=== PATIENT | male | born 1980 | race Hispanic/Latino ===

== ENCOUNTER 2018-04-13 04:00 | Emergency (ER) | payer OTHER ==
[2018-04-13] MEDS ORDERED: TETRACAINE HCL 0.5% 2ML OPTH ONE (04:10)
[2018-04-13] MEDS ORDERED: FLUORESCEIN SODIUM 0.6 MG/WRAP ONE (04:10)
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
[2018-04-13] MEDS ORDERED: TOBRAMYCIN SULF 0.3% OPTH OINT ONE (04:37)
[2018-04-13 04:51] VITALS: BP 141/90; TEMP 98.6; O2SAT 99
== END 2018-04-13 04:47 | disposition home or self-care (01) ==
LOC: ER 04:00
DX: H16.133 Photokeratitis, bilateral (principal); I10 Essential (primary) hypertension
CPT/HCPCS: 99283

== ENCOUNTER 2018-07-05 01:00 | Emergency (ER) | payer OTHER ==
[2018-07-05 01:46] LABS: Absolute Lymphocytes (CBC) 3.3 K/uL (0.7-4.9); Absolute Neutrophil 4.8 K/uL (1.8-8.0); Basophils % 0.5 % (0-1.3); Eosinophils % 3.3 % (0-4.4); Hematocrit 46.2 % (39.6-49.0); Lymphocytes % 35.1 % (15.3-44.8); MCH 30.2 pg (27.0-35.0); MCV 85.1 fL (80-100); MPV 7.9 fL (7.6-11.3); Monocytes % 10.9 % (3.3-12.3); RBC Red Blood Cell Count 5.44 M/uL (4.33-5.43)
[2018-07-05 02:07] LABS: BUN Blood Urea Nitrogen 17 mg/dL (7-18); Bicarbonate 29 mmol/L (21-32); Glucose Level 133 mg/dL (74-106); Potassium 3.5 mmol/L (3.5-5.1); Sodium Level 138 mmol/L (136-145); Troponin (Emerg Dept Use Only) < 0.02 ng/mL (0.0-0.045)
--- NOTE | 2018-07-05 02:17 | ER ---
Nurse's Notes [facility] Name: Denzel Denise Age: 37 yrs Sex: Male : 1980 Arrival Date: 07/05/2018 Time: 01:01 Bed 7 Private MD: Diagnosis: Chest pain, unspecified Presentation: 07/05 01:15 Presenting complaint: Patient states: he has had a sharp pain in his chest since this aa1 morning. States, "I'm not sure if it's indigestion or an air bubble or what but it just stays right here in the center of my chest." Denies pain on palpation. Denies N/V. Reports it feels as if he can't take a full breath in. Transition of care: patient was not received from another setting of care. Onset of symptoms was July 04, 2018. 01:15 Method Of Arrival: Ambulatory aa1 01:15 Risk Assessment: Do you want to hurt yourself or someone else? Patient reports no aa1 desire to harm self or others. Initial Sepsis Screen: Does the patient meet any 2 criteria? No. Patient's initial sepsis screen is negative. Does the patient have a suspected source of infection? No. Patient's initial sepsis screen is negative. Care prior to arrival: None. 01:15 Acuity: TAYLOR 3 aa1 Historical: - Allergies: 01:38 No Known Allergies; aa1 - Home Meds: 01:38 None [Active]; aa1 - PMHx: 01:38 Hypertension; aa1 - PSHx: 01:38 None; aa1 - Immunization history:: Last tetanus immunization: < 5 years ago. - Social history:: Smoking status: Patient/guardian denies using tobacco. - Ebola Screening: : No symptoms or risks identified at this time. Screenin:17 Abuse screen: Denies threats or abuse. Denies injuries from another. Nutritional aa1 screening: No deficits noted. Tuberculosis screening: No symptoms or risk factors identified. Fall Risk None identified. Assessment: 01:17 General: Appears in no apparent distress. comfortable, Behavior is calm, cooperative, aa1 appropriate for age. Pain: Complains of pain in mid-sternal area Pain does not radiate. Pain currently is 5 out of 10 on a pain scale. Quality of pain is described as sharp, Pain began this morning Is continuous. Neuro: Level of Consciousness is awake, alert, obeys commands, Oriented to person, place, time, situation, Moves all extremities. Full function Gait is steady, Speech is normal. Cardiovascular: Reports chest pain, Denies diaphoresis, lightheadedness, nausea, palpitations, vomiting, Heart tones S1 S2 present Capillary refill < 3 seconds Clubbing of nail beds is absent JVD is absent Patient's skin is warm and dry. Rhythm is regular Chest pain is described as vague, quality is sharp. Respiratory: Airway is patent Respiratory effort is even, unlabored, Respiratory pattern is regular, symmetrical. GI: No signs and/or symptoms were reported involving the gastrointestinal system. : No signs and/or symptoms were reported regarding the genitourinary system. EENT: No signs and/or symptoms were reported regarding the EENT system. Derm: Skin is intact, is healthy with good turgor, Skin is pink, warm \\T\\ dry. Musculoskeletal: Circulation, motion, and sensation intact. Capillary refill < 3 seconds. 02:35 Reassessment: Patient appears in no apparent distress at this time. Patient is alert, aa1 oriented x 3, equal unlabored respirations, skin warm/dry/pink. Discussed d/c \\T\\ f/u instructions with pt \\T\\ family; denies questions or concerns at this time. Vital Signs: 01:15 BP 141 / 75; Pulse 71; Resp 18; Temp 97.9; Pulse Ox 97% on R/A; Weight 104.33 kg; aa1 Height 5 ft. 6 in. (167.64 cm); Pain 5/10; 02:35 BP 134 / 78; Pulse 79; Resp 16; Pulse Ox 98% on R/A; aa1 01:15 Body Mass Index 37.12 (104.33 kg, 167.64 cm) aa1 ED Course: 01:01 Patient arrived in ED. ds1 01:14 Barry Casillas NP is PHCP. pm1 01:14 Rick Barr MD is Attending Physician. pm1 01:15 Arm band placed on right wrist. Patient placed in an exam room, on a stretcher. aa1 01:17 Patient has correct armband on for positive identification. Placed in gown. Bed in low aa1 position. Call light in reach. press operator carbon blocks on. Pulse ox on. NIBP on. 01:17 EKG done, by ED staff, reviewed by Rick Barr MD. Patient maintains SpO2 saturation aa1 greater than 95% on room air. 01:20 Inserted saline lock: 20 gauge in right antecubital area, using aseptic technique. ea Blood collected. 01:24 Gi Bee, RN is Primary Nurse. aa1 01:37 Triage completed. aa1 02:27 X-ray completed. Portable x-ray completed in exam room. Patient tolerated procedure mh1 well. 02:28 XRAY Chest (1 view) In Process Unspecified. EDMS 02:35 No provider procedures requiring assistance completed. IV discontinued, intact, aa1 bleeding controlled, No redness/swelling at site. Pressure dressing applied. Administered Medications: No medications were administered Outcome: 02:17 Discharge ordered by . pm1 02:35 Discharged to home ambulatory, with family. aa1 02:35 Condition: good 02:35 Discharge instructions given to patient, family, Instructed on discharge instructions, follow up and referral plans. Demonstrated understanding of instructions, follow-up care. 02:38 Patient left the ED. aa1 Signatures: Dispatcher [employer] EDMS Gi Bee, RN RN aa1 Shari Chang mh1 Julia Rowan ds1 aBrry Casillas, [employer] SYSTEMS DEVELOPER pm1 Bianca Hood RN RN ea
--- NOTE | 2018-07-05 02:17 | EDPHYS ---
Physician Documentation [facility] Name: Denzel Denise Age: 37 yrs Sex: Male : 1980 Arrival Date: 07/05/2018 Time: 01:01 Bed 7 Private MD: ED Physician Rick Barr HPI: 07/05 02:09 This 37 yrs old Male presents to ER via Ambulatory with complaints of Chest pm1 Pain. 02:09 The patient or guardian reports chest pain that is located primarily in the mid-sternal pm1 area. The pain does not radiate. Associated signs and symptoms: Pertinent positives: shortness of breath, Pertinent negatives: abdominal pain, cough, dizziness, nausea, palpitations, vomiting. The chest pain is described as aching. Duration: The patient or guardian reports a single episode, that is still ongoing. Modifying factors: The symptoms are alleviated by nothing. the symptoms are aggravated by deep breath. Severity of pain: in the emergency department the pain is unchanged. The patient has not experienced similar symptoms in the past. The patient has not recently seen a physician. Onset of chest pain yesterday morning. Historical: - Allergies: 01:38 No Known Allergies; aa1 - Home Meds: 01:38 None [Active]; aa1 - PMHx: 01:38 Hypertension; aa1 - PSHx: 01:38 None; aa1 - Immunization history:: Last tetanus immunization: < 5 years ago. - Social history:: Smoking status: Patient/guardian denies using tobacco. - Ebola Screening: : No symptoms or risks identified at this time. ROS: 02:09 Constitutional: Negative for fever, chills, and weight loss, Eyes: Negative for injury, pm1 pain, redness, and discharge, ENT: Negative for injury, pain, and discharge, Neck: Negative for injury, pain, and swelling. 02:09 Respiratory: Negative for shortness of breath, cough, wheezing, and pleuritic chest pain, Abdomen/GI: Negative for abdominal pain, nausea, vomiting, diarrhea, and constipation, Back: Negative for injury and pain, : Negative for injury, bleeding, discharge, and swelling, MS/Extremity: Negative for injury and deformity, Skin: Negative for injury, rash, and discoloration, Neuro: Negative for headache, weakness, numbness, tingling, and seizure. 02:09 Cardiovascular: Positive for chest pain, Negative for edema, orthopnea, palpitations, paroxysmal nocturnal dyspnea. Exam: 02:09 Constitutional: This is a well developed, well nourished patient who is awake, alert, pm1 and in no acute distress. Head/Face: Normocephalic, atraumatic. Eyes: Pupils equal round and reactive to light, extra-ocular motions intact. Lids and lashes normal. Conjunctiva and sclera are non-icteric and not injected. Cornea within normal limits. Periorbital areas with no swelling, redness, or edema. ENT: Nares patent. No nasal discharge, no septal abnormalities noted. Tympanic membranes are normal and external auditory canals are clear. Oropharynx with no redness, swelling, or masses, exudates, or evidence of obstruction, uvula midline. Mucous membranes moist. Neck: Trachea midline, no thyromegaly or masses palpated, and no cervical lymphadenopathy. Supple, full range of motion without nuchal rigidity, or vertebral point tenderness. No Meningismus. Chest/axilla: Normal chest wall appearance and motion. Nontender with no deformity. No lesions are appreciated. Cardiovascular: Regular rate and rhythm with a normal S1 and S2. No gallops, murmurs, or rubs. Normal PMI, no JVD. No pulse deficits. Respiratory: Lungs have equal breath sounds bilaterally, clear to auscultation and percussion. No rales, rhonchi or wheezes noted. No increased work of breathing, no retractions or nasal flaring. Abdomen/GI: Soft, non-tender, with normal bowel sounds. No distension or tympany. No guarding or rebound. No evidence of tenderness throughout. Back: No spinal tenderness. No costovertebral tenderness. Full range of motion. Skin: Warm, dry with normal turgor. Normal color with no rashes, no lesions, and no evidence of cellulitis. MS/ Extremity: Pulses equal, no cyanosis. Neurovascular intact. Full, normal range of motion. 02:09 NSR 02:09 Neuro: Orientation: is normal, Motor: is normal, moves all fours. Vital Signs: 01:15 BP 141 / 75; Pulse 71; Resp 18; Temp 97.9; Pulse Ox 97% on R/A; Weight 104.33 kg; aa1 Height 5 ft. 6 in. (167.64 cm); Pain 5/10; 02:35 BP 134 / 78; Pulse 79; Resp 16; Pulse Ox 98% on R/A; aa1 01:15 Body Mass Index 37.12 (104.33 kg, 167.64 cm) aa1 MDM: 01:20 Patient medically screened. pm1 02:12 Data reviewed: vital signs. Data interpreted: Pulse oximetry: on room air is 97 %. pm1 Interpretation: normal. 02:12 The patient's pulmonary embolism risk score was calculated as follows: No Risks (0 Pts).pm1 02:12 BEVERLY Risk Score: TOTAL SCORE = 0. pm1 02:12 Counseling: I had a detailed discussion with the patient and/or guardian regarding: the pm1 historical points, exam findings, and any diagnostic results supporting the discharge/admit diagnosis, lab results, the need for outpatient follow up, to return to the emergency department if symptoms worsen or persist or if there are any questions or concerns that arise at home. 07/05 01:27 Order name: Basic Metabolic Panel pm1 07/05 01:27 Order name: CBC with Diff pm1 07/05 01:27 Order name: Troponin (emerg Dept Use Only) pm1 07/05 01:28 Order name: Basic Metabolic Panel; Complete Time: 02:08 EDMS 07/05 01:28 Order name: CBC with Automated Diff; Complete Time: 02:08 EDDC 07/05 01:28 Order name: Troponin (Emerg Dept Use Only); Complete Time: 02:08 EDMS 07/05 01:27 Order name: XRAY Chest (1 view) pm1 07/05 01:27 Order name: EKG; Complete Time: 01:28 pm1 07/05 01:27 Order name: Cardiac monitoring; Complete Time: 01:30 pm1 07/05 01:27 Order name: EKG - Nurse/Tech; Complete Time: 01:30 pm1 07/05 01:27 Order name: IV Saline Lock; Complete Time: 01:49 pm1 07/05 01:27 Order name: Labs collected and sent; Complete Time: 01:49 pm1 Administered Medications: No medications were administered Disposition: 07/05/18 02:17 Discharged to Home. Impression: Chest pain, unspecified. - Condition is Stable. - Discharge Instructions: Nonspecific Chest Pain. - Medication Reconciliation Form, Thank You Letter form. - Follow up: Emergency Department; When: As needed; Reason: Worsening of condition. Follow up: Private Physician; When: 2 - 3 days; Reason: Recheck today's complaints, Continuance of care, Re-evaluation by your physician. - Problem is new. - Symptoms have improved. Addendum: 07/06/2018 03:06 Co-signature as Attending Physician, Rick Barr MD. g s Signatures: Dispatcher [employer] EDDC Gi Bee RN RN aa1 Barry Casillas, CARD LACER CARD LACER pm1 Rick Barr MD MD Corrections: (The following items were deleted from the chart) 07/05 02:38 02:17 07/05/2018 02:17 Discharged to Home. Impression: Chest pain, unspecified. aa1 Condition is Stable. Forms are Medication Reconciliation Form, Thank You Letter, Antibiotic Education, Prescription Opioid Use. Follow up: Emergency Department; When: As needed; Reason: Worsening of condition. Follow up: Private Physician; When: 2 - 3 days; Reason: Recheck today's complaints, Continuance of care, Re-evaluation by your physician. Problem is new. Symptoms have improved. pm1
[2018-07-05 02:46] VITALS: TEMP 97.9
[2018-07-05 02:47] VITALS: BP 134/78; O2SAT 98
--- NOTE | 2018-07-05 08:31 | RAD REPORT ---
EXAM DESCRIPTION: RAD - Chest Single View - 07/05/2018 2:28 am CLINICAL HISTORY: Chest pain COMPARISON: None. TECHNIQUE: AP portable chest image was obtained 0218 hours . FINDINGS: Lungs are clear. Lung markings are not outside of normal range. Heart and vasculature are normal. No measurable pleural effusion and no pneumothorax. No gross bony abnormality seen. No acute aortic findings suspected. IMPRESSION: No acute cardiopulmonary process.
--- NOTE | 2018-07-06 06:54 | EKG ---
Test Date: 2018-07-05 Test Time: 01:28:21 Geothermal Electrical Engineer: NEDA MEASUREMENT RESULTS: Intervals: Rate: 72 DC: 148 QRSD: 86 QT: 362 QTc: 396 [place]: P: 2 DC: 148 QRS: 118 T: 25 INTERPRETIVE STATEMENTS: Normal sinus rhythm Right axis deviation Abnormal ECG Compared to ECG 01/15/2008 03:12:42 No significant changes Electronically Signed On 07-06-18 06:51:19 CDT by Mata Turner
== END 2018-07-05 02:38 | disposition home or self-care (01) ==
LOC: ER 01:00
DX: R07.9 Chest pain, unspecified (principal); I10 Essential (primary) hypertension
CPT/HCPCS: 36415; 71045; 80048; 84484; 85025; 93005; 99285

== ENCOUNTER 2019-06-06 15:00 | Emergency (ER) | payer OTHER, SELFPAY ==
--- NOTE | 2019-06-06 16:53 | ER ---
Nurse's Notes [facility] Name: Denzel Denise Age: 38 yrs Sex: Male : 1980 Arrival Date: 06/06/2019 Time: 15:01 Bed 18 Private MD: Diagnosis: Pain in left wrist Presentation: 06/06 15:12 Presenting complaint: Patient states: "I sprained my wrist a month ago, and it still ss hurts." C/o L wrist pain. Transition of care: patient was not received from another setting of care. Onset of symptoms was April 2019. Risk Assessment: Do you want to hurt yourself or someone else? Patient reports no desire to harm self or others. Initial Sepsis Screen: Does the patient meet any 2 criteria? No. Patient's initial sepsis screen is negative. Does the patient have a suspected source of infection? No. Patient's initial sepsis screen is negative. Care prior to arrival: None. 15:12 Method Of Arrival: Ambulatory ss 15:12 Acuity: TAYLOR 4 ss Triage Assessment: 16:09 Injury Description: "sprained my ankle a month ago". tw2 Historical: - Allergies: 15:14 No Known Allergies; ss - Home Meds: 15:14 metformin 500 mg Oral tab 1 tab daily [Active]; ss 16:09 lisinopril 10 mg Oral tab 1 tab once daily [Active]; tw2 - PMHx: 15:14 Hypertension; Diabetes - NIDDM; ss - PSHx: 15:14 None; ss - Immunization history:: Adult Immunizations up to date. - Social history:: Smoking status: Patient/guardian denies using tobacco. - Ebola Screening: : Patient denies exposure to infectious person Patient denies travel to an Ebola-affected area in the 21 days before illness onset. Screenin:57 Abuse screen: Denies threats or abuse. Denies injuries from another. Nutritional ca1 screening: No deficits noted. Tuberculosis screening: No symptoms or risk factors identified. Fall Risk None identified. Assessment: 15:57 General: Appears in no apparent distress. comfortable, Behavior is calm, cooperative, ca1 appropriate for age. Pain: Complains of pain in left wrist Pain currently is 7 out of 10 on a pain scale. Pain began a month ago. Neuro: Level of Consciousness is awake, alert, obeys commands, Oriented to person, place, time, situation. Cardiovascular: Heart tones S1 S2 present Capillary refill < 3 seconds Patient's skin is warm and dry. Respiratory: Airway is patent Respiratory effort is even, unlabored, Respiratory pattern is regular, symmetrical, Breath sounds are clear bilaterally. GI: Abdomen is round non-distended, Bowel sounds present X 4 quads. Abd is soft and non tender X 4 quads. : No deficits noted. No signs and/or symptoms were reported regarding the genitourinary system. EENT: No deficits noted. No signs and/or symptoms were reported regarding the EENT system. Derm: Skin is intact, is healthy with good turgor, Skin is pink, warm \\T\\ dry. Musculoskeletal: Circulation, motion, and sensation intact. Capillary refill < 3 seconds, Range of motion: intact in all extremities. 16:41 Reassessment: Patient appears in no apparent distress at this time. Patient and/or ca1 family updated on plan of care and expected duration. Pain level reassessed. Patient is alert, oriented x 3, equal unlabored respirations, skin warm/dry/pink. 17:28 Reassessment: Patient appears in no apparent distress at this time. Patient is alert, ca1 oriented x 3, equal unlabored respirations, skin warm/dry/pink. Vital Signs: 15:14 BP 127 / 68; Pulse 70; Resp 15; Temp 97.4(TE); Pulse Ox 98% on R/A; Weight 108.86 kg; ss Height 5 ft. 6 in. (167.64 cm); Pain 7/10; 16:41 BP 122 / 83; Pulse 76; Resp 16 S; Pulse Ox 97% on R/A; ca1 17:28 BP 125 / 81; Pulse 78; Resp 16 S; Pulse Ox 99% on R/A; ca1 15:14 Body Mass Index 38.74 (108.86 kg, 167.64 cm) ED Course: 15:01 Patient arrived in ED. as 15:13 Triage completed. ss 15:14 Arm band placed on right wrist. ss 15:43 Aan Booth, JAMILAH is Primary Nurse. ca1 15:51 Barry Casillas NP is PHCP. pm1 15:51 Rick Barr MD is Attending Physician. pm1 15:57 Patient has correct armband on for positive identification. Bed in low position. Call ca1 light in reach. Side rails up X 1. Pulse ox on. NIBP on. Warm blanket given. 16:29 XRAY Wrist LEFT 3 view In Process Unspecified. EDMS 16:33 X-ray completed. Portable x-ray completed in exam room. Patient tolerated procedure mh1 well. 17:22 Velcro wrist splint applied to left wrist. 3 17:29 No provider procedures requiring assistance completed. Patient did not have IV access ca1 during this emergency room visit. Administered Medications: No medications were administered Outcome: 16:53 Discharge ordered by MD. pm1 17:29 Discharged to home ambulatory, with significant other. ca1 17:29 Condition: stable 17:29 Discharge instructions given to patient, Instructed on discharge instructions, follow up and referral plans. Demonstrated understanding of instructions, follow-up care. 17:29 Patient left the ED. ca1 Signatures: Dispatcher [employer] EDMS Shari Chang 1 Sima Rene Shelby, JAMILAH RN ss Barry Casillas, DRY HOUSE WORKER DRY HOUSE WORKER 1 Cherie Choudhury RN RN 2 Mahsa Pearl 3 Ana Booth RN RN ca1
--- NOTE | 2019-06-06 16:53 | EDPHYS ---
Physician Documentation [facility] Name: Denzel Denise Age: 38 yrs Sex: Male : 1980 Arrival Date: 06/06/2019 Time: 15:01 Bed 18 Private MD: ED Physician Rick Barr HPI: 06/06 16:16 This 38 yrs old Male presents to ER via Ambulatory with complaints of Left pm1 Wrist Injury. 16:16 The patient or guardian reports pain. The complaints affect the left wrist diffusely. pm1 Context: resulted from Kettle matthew exercises. Onset: The symptoms/episode began/occurred 1 month(s) ago. Modifying factors: The symptoms are alleviated by holding still, the symptoms are aggravated by movement. Associated signs and symptoms: Pertinent negatives: cyanosis distally, decreased sensation distally, fever, numbness distally, tingling distally. The patient has not experienced similar symptoms in the past. The patient has not recently seen a physician, no prior treatment for this complaint. Historical: - Allergies: 15:14 No Known Allergies; ss - Home Meds: 15:14 metformin 500 mg Oral tab 1 tab daily [Active]; ss 16:09 lisinopril 10 mg Oral tab 1 tab once daily [Active]; tw2 - PMHx: 15:14 Hypertension; Diabetes - NIDDM; ss - PSHx: 15:14 None; ss - Immunization history:: Adult Immunizations up to date. - Social history:: Smoking status: Patient/guardian denies using tobacco. - Ebola Screening: : Patient denies exposure to infectious person Patient denies travel to an Ebola-affected area in the 21 days before illness onset. ROS: 16:16 Constitutional: Negative for fever, chills, and weight loss, Neck: Negative for injury, pm1 pain, and swelling, Cardiovascular: Negative for chest pain, palpitations, and edema, Respiratory: Negative for shortness of breath, cough, wheezing, and pleuritic chest pain, Abdomen/GI: Negative for abdominal pain, nausea, vomiting, diarrhea, and constipation, Back: Negative for injury and pain. 16:16 Skin: Negative for injury, rash, and discoloration, Neuro: Negative for headache, weakness, numbness, tingling, and seizure. 16:16 MS/extremity: Positive for pain, of the left wrist, Negative for decreased range of motion, deformity, paresthesias, swelling. Exam: 16:16 Hand exam: is negative for decreased range of motion, deformity, edema, snuff pm1 box/scaphoid tenderness, Exam is positive for tenderness, lateral aspect of left wrist. ROM: full active range of motion, full passive range of motion, Circulation is intact in all extremities. sensation intact. 16:16 Constitutional: This is a well developed, well nourished patient who is awake, alert, and in no acute distress. Head/Face: Normocephalic, atraumatic. Neck: Trachea midline, no thyromegaly or masses palpated, and no cervical lymphadenopathy. Supple, full range of motion without nuchal rigidity, or vertebral point tenderness. No Meningismus. Chest/axilla: Normal chest wall appearance and motion. Nontender with no deformity. No lesions are appreciated. Cardiovascular: Regular rate and rhythm with a normal S1 and S2. No gallops, murmurs, or rubs. Normal PMI, no JVD. No pulse deficits. Respiratory: Lungs have equal breath sounds bilaterally, clear to auscultation and percussion. No rales, rhonchi or wheezes noted. No increased work of breathing, no retractions or nasal flaring. Back: No spinal tenderness. No costovertebral tenderness. Full range of motion. Skin: Warm, dry with normal turgor. Normal color with no rashes, no lesions, and no evidence of cellulitis. 16:16 Neuro: Orientation: is normal, Motor: is normal, moves all fours, Sensation: is normal, no obvious gross deficits, Gait: is steady, at a normal pace, without difficulty. Vital Signs: 15:14 BP 127 / 68; Pulse 70; Resp 15; Temp 97.4(TE); Pulse Ox 98% on R/A; Weight 108.86 kg; ss Height 5 ft. 6 in. (167.64 cm); Pain 7/10; 16:41 BP 122 / 83; Pulse 76; Resp 16 S; Pulse Ox 97% on R/A; ca1 17:28 BP 125 / 81; Pulse 78; Resp 16 S; Pulse Ox 99% on R/A; ca1 15:14 Body Mass Index 38.74 (108.86 kg, 167.64 cm) MDM: 16:03 Patient medically screened. pm1 16:22 Data reviewed: vital signs. Data interpreted: Pulse oximetry: on room air is 98 %. pm1 Interpretation: normal. 16:22 ED course: Patient offered pain medication, patient refused. pm1 16:52 Counseling: I had a detailed discussion with the patient and/or guardian regarding: the pm1 historical points, exam findings, and any diagnostic results supporting the discharge/admit diagnosis, radiology results, the need for outpatient follow up, to return to the emergency department if symptoms worsen or persist or if there are any questions or concerns that arise at home. 06/06 15:15 Order name: XRAY Wrist LEFT 3 view ss 06/06 16:53 Order name: Splint - Wrist; Complete Time: 17:22 pm1 Administered Medications: No medications were administered Disposition: 06/06/19 16:53 Discharged to Home. Impression: Pain in left wrist. - Condition is Stable. - Discharge Instructions: Wrist Splint, Wrist Pain, [id number]. - Medication Reconciliation Form, Thank You Letter, Antibiotic Education, Prescription Opioid Use form. - Follow up: Emergency Department; When: As needed; Reason: Worsening of condition. Follow up: Private Physician; When: 2 - 3 days; Reason: Recheck today's complaints, Continuance of care, Re-evaluation by your physician. - Problem is new. - Symptoms have improved. Addendum: 06/08/2019 15:36 Co-signature as Attending Physician, Rick Barr MD. g s Signatures: Dispatcher [employer] EDVA Aubrie Chávez RN RN Barry Casillas, FINE CRAFT ARTIST FINE CRAFT ARTIST pm1 Cherie Choudhury RN RN tw2 Rick Barr MD MD [facility] ca1 Corrections: (The following items were deleted from the chart) 06/06 17:29 16:53 06/06/2019 16:53 Discharged to Home. Impression: Pain in left wrist. Condition is ca1 Stable. Forms are Medication Reconciliation Form, Thank You Letter, Antibiotic Education, Prescription Opioid Use. Follow up: Emergency Department; When: As needed; Reason: Worsening of condition. Follow up: Private Physician; When: 2 - 3 days; Reason: Recheck today's complaints, Continuance of care, Re-evaluation by your physician. Problem is new. Symptoms have improved. pm1
--- NOTE | 2019-06-06 17:43 | RAD REPORT ---
EXAM DESCRIPTION: RAD - Wrist Left 3 View - 06/06/2019 4:28 pm CLINICAL HISTORY: Left wrist pain FINDINGS: No fracture or dislocation is seen. No bone or joint abnormality
[2019-06-06 18:07] VITALS: BP 125/81; O2SAT 99
== END 2019-06-06 17:29 | disposition home or self-care (01) ==
LOC: ER 15:00
DX: M25.532 Pain in left wrist (principal); I10 Essential (primary) hypertension; E11.9 Type 2 diabetes mellitus without complications
CPT/HCPCS: 99283

== ENCOUNTER 2019-07-23 21:56 | Emergency (ER) | payer OTHER, SELFPAY ==
--- NOTE | 2019-07-23 23:42 | ER ---
Nurse's Notes [facility] Name: Denzel Denise Age: 38 yrs Sex: Male : 1980 Arrival Date: 07/23/2019 Time: 21:57 Bed Waiting Private MD: Diagnosis: Presentation: 07/23 22:36 Presenting complaint: Patient states: that he was having chest pain with dizziness but fc no shortness of breath or nausea. Pain comes and goes only lasting minutes. Transition of care: patient was not received from another setting of care. Onset of symptoms was July 23, 2019 at 20:00. Risk Assessment: Do you want to hurt yourself or someone else? Patient reports no desire to harm self or others. Initial Sepsis Screen: Does the patient meet any 2 criteria? No. Patient's initial sepsis screen is negative. Does the patient have a suspected source of infection? No. Patient's initial sepsis screen is negative. Care prior to arrival: None. 22:36 Method Of Arrival: Ambulatory 22:36 Acuity: TAYLOR 3 Triage Assessment: 22:41 General: Appears comfortable, Behavior is calm, cooperative, appropriate for age. Pain: fc Complains of pain in chest Pain currently is 2 out of 10 on a pain scale. at worst was 5 out of 10 on a pain scale. Quality of pain is described as sharp, Pain began 2 hours ago. Is intermittent. EENT: No deficits noted. Neuro: Level of Consciousness is awake, alert, obeys commands, Oriented to person, place, time, situation, Appropriate for age. Cardiovascular: Reports chest pain, Heart tones S1 S2 Rhythm is regular Chest pain is described as vague, quality is sharp, is located in chest wall began 2 hours prior to arrival episodes are intermittent. Respiratory: No deficits noted. GI: No deficits noted. : No deficits noted. Derm: Skin is pink, warm \T\ dry. Musculoskeletal: Circulation, motion, and sensation intact. Capillary refill < 3 seconds, Range of motion: intact in all extremities. Historical: - Allergies: 22:40 No Known Allergies; fc - Home Meds: 22:40 metformin 500 mg Oral tab 1 tab daily [Active]; fc - PMHx: 22:40 Diabetes - NIDDM; Hypertension; fc - PSHx: 22:40 None; fc - Immunization history:: Last tetanus immunization: up to date Flu vaccine is not up to date. - Social history:: Smoking status: Patient/guardian denies using tobacco, Patient/guardian denies using alcohol, street drugs. - Ebola Screening: : Patient negative for fever greater than or equal to 101.5 degrees Fahrenheit, and additional compatible Ebola Virus Disease symptoms Patient denies exposure to infectious person Patient denies travel to an Ebola-affected area in the 21 days before illness onset. Vital Signs: 22:40 BP 139 / 77; Pulse 71; Resp 20; Temp 98.1(O); Pulse Ox 98% on R/A; Weight 113.4 kg (R); fc Height 5 ft. 6 in. (167.64 cm) (R); Pain 2/10; 22:40 Body Mass Index 40.35 (113.40 kg, 167.64 cm) fc ED Course: 21:57 Patient arrived in ED. ds1 22:39 Triage completed. fc 22:40 Arm band placed on Patient placed in waiting room. fc 22:40 Patient Pt instructed to wait to be seen due to it being chest pain. Explained there fc would be a short wait. EKG completed in triage. Results shown to MD. 23:15 Patient's name was called from ER lobby. No response. fc 23:15 Notified Charge Nurse of PT called from waiting room with no answer. em1 23:20 Notified Charge Nurse of PT called from waiting room with no answer. em1 23:28 Patient's name was called from ER lobby. No response. fc 23:40 Patient's name was called from ER lobby. No response. Administered Medications: No medications were administered Outcome: 23:41 Patient left the ED. Signatures: Misa Enamorado, RN RN Julia Hernandez ds1 Edgard, Frank em1
[2019-07-24 01:32] VITALS: BP 139/77; TEMP 98.1; O2SAT 98
--- NOTE | 2019-07-25 06:19 | EKG ---
Test Date: 2019-07-23 Test Time: 22:48:58 Prescription Eyeglass Maker: HARJIT MEASUREMENT RESULTS: Intervals: Rate: 68 VT: 148 QRSD: 88 QT: 380 QTc: 404 [place]: P: 9 VT: 148 QRS: 95 T: 27 INTERPRETIVE STATEMENTS: Normal sinus rhythm Rightward axis cannot rule out Septal infarct, age undetermined Abnormal ECG Compared to ECG 07/05/2018 01:28:21 Myocardial infarct finding now present Electronically Signed On 07-25-19 06:18:47 CDT by George Guzman
== END 2019-07-23 23:41 | disposition left against medical advice (07) ==
LOC: ER 21:56
DX: Z53.21 Procedure and treatment not carried out due to patient leaving prior to being seen by health care provider (principal)
CPT/HCPCS: 93005; 99281

== ENCOUNTER 2022-01-27 23:37 | Emergency (ER) | payer BC ==
[2022-01-28] MEDS ORDERED: HYDROCODONE/APAP 5/325 MG TAB ONE (00:47)
[2022-01-28] MEDS ORDERED: CEFAZOLIN SODIUM 1 GM/VIAL ONE (02:15)
[2022-01-28] MEDS ORDERED: WATER FOR INJ,STERILE 10 ML ONE (02:16)
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
--- NOTE | 2022-01-28 02:33 | EDPHYS ---
Physician Documentation [facility] Name: Denzel Denise Age: 41 yrs Sex: Male : 1980 Arrival Date: 01/27/2022 Time: 23:40 Bed 6 Private MD: ED Physician Sidney Steinberg HPI: 01/28 01:01 This 41 yrs old Male presents to ER via Wheelchair with complaints of mh7 Laceration To Foot - Both feet. 01:01 The patient presents with an abrasion, an injury. The complaints affect the right foot. mh7 Context: The problem was sustained at home, resulted from a penetrating injury, damaged tile floor, Mechanism of Injury: Unknown the patient can fully bear weight, the patient is able to ambulate, with mild difficulty. Onset: The symptoms/episode began/occurred just prior to arrival. Modifying factors: The symptoms are alleviated by nothing, the symptoms are aggravated by weight bearing. Associated signs and symptoms: Pertinent negatives: calf tenderness, fever, nausea, numbness, rash, swelling, tingling, vomiting, warmth, weakness. Severity of symptoms: At their worst the symptoms were mild, just prior to arrival, in the emergency department the symptoms are unchanged. Historical: - Allergies: 00:26 No Known Allergies; as6 - Home Meds: 00:26 none [Active]; as6 - PMHx: 00:26 Diabetes - NIDDM; as6 - PSHx: 00:26 None; as6 - Immunization history:: Client reports receiving the 2nd dose of the Covid vaccine, pfizer Last tetanus immunization: < 10 years ago. - Social history:: Smoking status: Patient/guardian denies using tobacco, Stopped _ months ago 2. ROS: 01:01 Constitutional: Negative for fever, chills, and weight loss, Eyes: Negative for injury, mh7 pain, redness, and discharge, ENT: Negative for injury, pain, and discharge, Neck: Negative for injury, pain, and swelling, Cardiovascular: Negative for chest pain, palpitations, and edema, Respiratory: Negative for shortness of breath, cough, wheezing, and pleuritic chest pain, Abdomen/GI: Negative for abdominal pain, nausea, vomiting, diarrhea, and constipation, Back: Negative for injury and pain, : Negative for injury, bleeding, discharge, and swelling, Neuro: Negative for headache, weakness, numbness, tingling, and seizure, Psych: Negative for depression, anxiety, suicide ideation, homicidal ideation, and hallucinations, Allergy/Immunology: Negative for hives, rash, and allergies, Endocrine: Negative for neck swelling, polydipsia, polyuria, polyphagia, and marked weight changes, Hematologic/Lymphatic: Negative for swollen nodes, abnormal bleeding, and unusual bruising. Exam: 01:01 Constitutional: This is a well developed, well nourished patient who is awake, alert, mh7 and in no acute distress. Head/Face: Normocephalic, atraumatic. Eyes: Pupils equal round and reactive to light, extra-ocular motions intact. Lids and lashes normal. Conjunctiva and sclera are non-icteric and not injected. Cornea within normal limits. Periorbital areas with no swelling, redness, or edema. Neck: Trachea midline, no thyromegaly or masses palpated, and no cervical lymphadenopathy. Supple, full range of motion without nuchal rigidity, or vertebral point tenderness. No Meningismus. Chest/axilla: Normal chest wall appearance and motion. Nontender with no deformity. No lesions are appreciated. Cardiovascular: Regular rate and rhythm with a normal S1 and S2. No gallops, murmurs, or rubs. Normal PMI, no JVD. No pulse deficits. Respiratory: Lungs have equal breath sounds bilaterally, clear to auscultation and percussion. No rales, rhonchi or wheezes noted. No increased work of breathing, no retractions or nasal flaring. Abdomen/GI: Soft, non-tender, with normal bowel sounds. No distension or tympany. No guarding or rebound. No evidence of tenderness throughout. Back: No spinal tenderness. No costovertebral tenderness. Full range of motion. Neuro: Awake and alert, GCS 15, oriented to person, place, time, and situation. Cranial nerves II-XII grossly intact. Motor strength 5/5 in all extremities. Sensory grossly intact. Cerebellar exam normal. Normal gait. Psych: Awake, alert, with orientation to person, place and time. Behavior, mood, and affect are within normal limits. 01:01 Skin: injury, abrasion(s), very small abrasion noted, of the plantar right foot, mh7 multiple, with dried blood, small single abrasion left plantar foot. 01:01 Musculoskeletal/extremity: Extremities: noted in the right foot, plantar aspect: mh7 abrasion, puncture, tenderness, multiple, small, dried blood, noted in the left foot, plantar aspect: abrasion, single, small, no bleeding, ROM: intact in all extremities, Circulation is intact in all extremities. Sensation intact. Compartment Syndrome exam of affected extremity: is normal. no numbness, no tingling, no sensation deficit, no palor, no weak pulses, Joints: All joints appear normal with full range of motion. Weight bearing: able to fully bear weight, Tendon exam: specific tendon testing normal through active and passive range of motion Vital Signs: 00:25 BP 125 / 77; Pulse 74; Resp 16 S; Temp 98.1(O); Pulse Ox 98% on R/A; Weight 104.33 kg as6 (R); Height 5 ft. 6 in. (167.64 cm) (R); Pain 7/10; 01:00 BP 131 / 75; Pulse 71; Resp 18 S; Pulse Ox 97% on R/A; as6 02:00 BP 125 / 77; Pulse 74; Resp 20 S; Pulse Ox 100% on R/A; as6 00:25 Body Mass Index 37.12 (104.33 kg, 167.64 cm) as6 MDM: 02:28 Differential diagnosis: fracture, sprain, foreign body, penetrating trauma, Laceration. 7 Data reviewed: vital signs, radiologic studies, plain films. Data interpreted: Pulse oximetry: on room air is 98 %. Interpretation: normal. Counseling: I had a detailed discussion with the patient and/or guardian regarding: the historical points, exam findings, and any diagnostic results supporting the discharge/admit diagnosis, radiology results, the need for outpatient follow up, a hemotherapist, to return to the emergency department if symptoms worsen or persist or if there are any questions or concerns that arise at home. Response to treatment: the patient's symptoms have markedly improved after treatment. 02:32 Patient medically screened. 01/28 00:41 Order name: Foot Right 3 View XRAY [facility] 01/28 02:12 Order name: Wound Care; Complete Time: 02:48 [facility] 01/28 02:12 Order name: Wound dressing; Complete Time: 02:48 [facility] 01/28 02:27 Order name: Min Wrap; Complete Time: 02:48 [facility] 01/28 02:27 Order name: Crutches; Complete Time: 02:48 7 Administered Medications: 00:44 Drug: Lorimor (HYDROcodone-acetaminophen) 5 mg-325 mg 1 tabs Route: PO; kd3 02:50 Follow up: Response: No adverse reaction; RASS: Alert and Calm (0) as6 02:20 Drug: Ancef (cefazolin) 1 grams Route: IM; Site: right ventrogluteal; kd3 02:50 Follow up: Response: No adverse reaction as6 Disposition Summary: 01/28/22 02:32 Discharge Ordered Location: Home [facility] Problem: new [facility] Symptoms: have improved [facility] Condition: Stable [facility] Diagnosis - Foreign Body, multiple, Right Foot [facility] Followup: [facility] - With: Private Physician - When: 1 - 2 days - Reason: Worsening of condition, Recheck today's complaints, Continuance of care, Re-evaluation by your physician Followup: [facility] - With: Scott Harrison DPM - When: 1 - 2 days - Reason: Worsening of condition, Recheck today's complaints Discharge Instructions: - Discharge Summary Sheet [facility] - Hand or Foot Foreign Body, Adult [facility] Forms: - Medication Reconciliation Form [facility] - Thank You Letter [facility] - Antibiotic Education [facility] - Prescription Opioid Use [facility] Prescriptions: - Cephalexin 500 mg Oral Capsule - take 1 capsule by ORAL route every 8 hours for 7 days; 21 capsule; Refills: 0, [facility] Product Selection Permitted - Ibuprofen 600 mg Oral Tablet - take 1 tablet by ORAL route every 6 hours As needed take with food; 15 tablet; [facility] Refills: 0, Product Selection Permitted - Tylenol-Codeine #3 300 mg-30 mg Oral - take 2 tablet by ORAL route every 6 hours As needed; 20 tablet; Refills: 0, [facility] Product Selection Permitted Signatures: Dispatcher [employer] Sidney Green MD MD 7 Rgoer Medina RN RN as6 Madhuri Zamora RN RN kd3 Corrections: (The following items were deleted from the chart) 00:27 00:26 PMHx: Hypertension; as6 as6
[2022-01-28 06:26] VITALS: TEMP 98.1
[2022-01-28 06:30] VITALS: BP 125/77; O2SAT 100
--- NOTE | 2022-01-28 16:13 | RAD REPORT ---
EXAM DESCRIPTION: RAD - Foot Right 3 View - 01/28/2022 1:10 am CLINICAL HISTORY: The patient is 41 years old and is Male; Injury TECHNIQUE: Frontal, lateral and oblique views of the right foot. COMPARISON: No relevant prior studies available. FINDINGS: BONES/JOINTS: Unremarkable. No acute fracture. No dislocation. SOFT TISSUES: Multiple radiopaque foreign bodies are noted scattered within the soft tissues of the plantar surface of the foot. IMPRESSION: Multiple radiopaque foreign bodies are noted scattered within the soft tissues of the pl danielle surface of the foot. No underlying acute bony abnormality. Electronically signed by: Antonette Sales MD 01/28/2022 1:33 AM CDT Due to temporary technical issues with the PACS/Fluency reporting system, reports are being signed by the in house radiologist without review as a courtesy to ensure prompt reporting. The interpreting r adiologist is fully responsible for the content of the report.
== END 2022-01-28 02:53 | disposition home or self-care (01) ==
LOC: ER 23:37
DX: S91.341A Puncture wound with foreign body, right foot, initial encounter (principal); E11.9 Type 2 diabetes mellitus without complications
CPT/HCPCS: 73630; 96372; 99284; J0690

== ENCOUNTER 2022-04-22 08:29 | Emergency (ER) | payer BC, SELFPAY ==
[2022-04-22] MEDS ORDERED: ACETAMINOPHEN 500 MG TAB ONE (10:56)
[2022-04-22] MEDS ORDERED: DIPHENHYDRAMINE 50 MG/ML VIAL ONE (10:56)
[2022-04-22] MEDS ORDERED: BEBTELOVIMAB 175 MG/2 ML VIAL IV ONE (10:57)
--- NOTE | 2022-04-22 11:34 | ER ---
Nurse's Notes [facility] Name: Denzel Denise Age: 41 yrs Sex: Male : 1980 Arrival Date: 04/22/2022 Time: 08:31 Bed 5 Private MD: Diagnosis: Coronavirus infection, unspecified Presentation: 04/22 08:37 Chief complaint: Patient states: pt reported home covid symptoms x 6-7 DAYS. home covid lp1 tested positive, sore throat and rash. Coronavirus screen: Vaccine status: Patient reports receiving the 1st dose of the Covid vaccine. Ebola Screen: Patient denies travel to an Ebola-affected area in the 21 days before illness onset. Onset: The symptoms/episode began/occurred gradually. Anaphylaxis evaluation, no signs or symptoms of anaphylaxis were noted. Initial Sepsis Screen: Does the patient meet any 2 criteria? HR > 90 bpm. Does the patient have a suspected source of infection? No. Patient's initial sepsis screen is negative. Risk Assessment: Do you want to hurt yourself or someone else? Patient reports no desire to harm self or others. Onset of symptoms was April 15, 2022. 08:37 Method Of Arrival: Ambulatory lp1 08:37 Acuity: TAYLOR 3 lp1 Triage Assessment: 08:40 General: Appears in no apparent distress. Behavior is calm, cooperative. Pain: lp1 Complains of pain in throat pain. Historical: - Allergies: 08:40 No Known Allergies; lp1 - Home Meds: 08:40 metformin 500 mg Oral Tb24 1 tab once daily [Active]; lp1 - PMHx: 08:40 Diabetes - NIDDM; lp1 - Immunization history:: Adult Immunizations up to date. - Social history:: Smoking status: Patient denies any tobacco usage or history of. Screenin:56 Abuse screen: Denies threats or abuse. Nutritional screening: No deficits noted. vg1 Tuberculosis screening: No symptoms or risk factors identified. Fall Risk No fall in past 12 months (0 pts). No secondary diagnosis (0 pts). No IV (0 pts). Ambulatory Aid- None/Bed Rest/Nurse Assist (0 pts). Gait- Normal/Bed Rest/Wheelchair (0 pts) Mental Status- Oriented to own ability (0 pts). Total Mendez Fall Scale indicates No Risk (0-24 pts). Assessment: 08:56 General: Appears comfortable, Behavior is calm, cooperative. Pain: Complains of pain in vg1 throat Pain currently is 3 out of 10 on a pain scale. Pain began x5-6 days. Neuro: Level of Consciousness is awake, alert, obeys commands, Oriented to person, place, time, situation. Cardiovascular: Patient's skin is warm and dry. Respiratory: Reports cough that is productive, Airway is patent Respiratory effort is even, unlabored, Breath sounds are clear bilaterally. GI: No signs and/or symptoms were reported involving the gastrointestinal system. : No signs and/or symptoms were reported regarding the genitourinary system. EENT: Throat is reddened. Derm: Skin is intact, is healthy with good turgor, Rash noted that is red, on LI upper arms, axillary, and lower ABD. Musculoskeletal: Circulation, motion, and sensation intact. 09:58 Reassessment: Patient appears in no apparent distress at this time. No changes from vg1 previously documented assessment. Patient and/or family updated on plan of care and expected duration. Pain level reassessed. Patient is alert, oriented x 3, equal unlabored respirations, skin warm/dry/pink. 11:08 Reassessment: Patient appears in no apparent distress at this time. No changes from vg1 previously documented assessment. Patient and/or family updated on plan of care and expected duration. Pain level reassessed. Patient is alert, oriented x 3, equal unlabored respirations, skin warm/dry/pink. Pt refused bebtelovimab; provider notified. Vital Signs: 08:37 BP 109 / 97; Pulse 92; Resp 18; Temp 98.3; Pulse Ox 99% on R/A; Weight 104.33 kg; lp1 Height 5 ft. 6 in. (167.64 cm); 09:58 BP 127 / 74; Pulse 86; Resp 16; Pulse Ox 98% on R/A; vg1 11:09 BP 117 / 73; Pulse 73; Resp 16; Pulse Ox 98% on R/A; vg1 08:37 Body Mass Index 37.12 (104.33 kg, 167.64 cm) lp1 ED Course: 08:31 Patient arrived in ED. as 08:34 [facility] 08:34 Eldon Soto MD is Attending Physician. m 08:40 Triage completed. lp1 08:40 Arm band placed on. lp1 08:46 Karen Rooney, RN is Primary Nurse. vg1 08:56 Patient has correct armband on for positive identification. Bed in low position. Call vg1 light in reach. Side rails up X 1. Adult w/ patient. 10:34 Inserted saline lock: 20 gauge in right antecubital area, using aseptic technique. jw7 11:54 No provider procedures requiring assistance completed. IV discontinued, intact, iw bleeding controlled, No redness/swelling at site. Pressure dressing applied. Administered Medications: 11:09 Not Given (Patient Refused): bebtelovimab 1 application IVP Per protocol vg1 11:09 Not Given (Patient Refused): diphenhydrAMINE 50 mg IVP once vg1 11:09 Not Given (Patient Refused): Acetaminophen 1000 mg PO once vg1 Medication: 08:56 VIS not applicable for this client. vg1 Outcome: 11:33 Discharge ordered by MD. [facility] 11:54 Discharged to home ambulatory, with family. iw 11:54 Condition: good 11:54 Discharge instructions given to patient, family, Instructed on discharge instructions, follow up and referral plans. medication usage, Demonstrated understanding of instructions, follow-up care, medications, Prescriptions given X 2. 11:55 Patient left the ED. Signatures: Yehuda Sheehan PA PA jmm Martinez, Amelia as Williams, Irene, RN JAMILAH iw Marian Willis RN RN Karen Anderson, RN RN [facility] Aileen Astorga jw7 Corrections: (The following items were deleted from the chart) 09:03 08:56 Derm: Skin is intact, is healthy with good turgor, vg1 vg1
--- NOTE | 2022-04-22 11:34 | EDPHYS ---
Physician Documentation [facility] Name: Denzel Denise Age: 41 yrs Sex: Male : 1980 Arrival Date: 04/22/2022 Time: 08:31 Bed 5 Private MD: ED Physician Eldon Soto HPI: 04/22 09:00 This 41 yrs old Male presents to ER via Ambulatory with complaints of Hives, jmm covid+, symptoms worsening. 09:00 The patient or guardian reports cough. Onset: The symptoms/episode began/occurred jmm gradually, 5 day(s) ago. Modifying factors: The symptoms are alleviated by nothing. the symptoms are aggravated by nothing. Associated signs and symptoms: Pertinent positives: sore throat. The patient has not experienced similar symptoms in the past. Historical: - Allergies: 08:40 No Known Allergies; lp1 - Home Meds: 08:40 metformin 500 mg Oral Tb24 1 tab once daily [Active]; lp1 - PMHx: 08:40 Diabetes - NIDDM; lp1 - Immunization history:: Adult Immunizations up to date. - Social history:: Smoking status: Patient denies any tobacco usage or history of. ROS: 09:00 Constitutional: Positive for body aches, chills. jmm 09:00 ENT: Positive for sore throat. 09:00 Respiratory: Positive for cough. 09:00 All other systems are negative. Exam: 09:00 Constitutional: This is a well developed, well nourished patient who is awake, alert, jmm and in no acute distress. Head/Face: atraumatic. Eyes: EOMI, no conjunctival erythema appreciated 09:00 Neck: Trachea midline, Supple Chest/axilla: Normal chest wall appearance and motion. Cardiovascular: Regular rate and rhythm. No edema appreciated Respiratory: Normal respirations, no respiratory distress appreciated Abdomen/GI: Non distended Back: Normal ROM Skin: General appearance color normal 09:00 ENT: Posterior pharynx: erythema, that is mild. 09:00 Musculoskeletal/extremity: ROM: intact in all extremities. 09:00 Skin: Appearance: Color: normal in color. 09:00 Neuro: Orientation: is normal, Mentation: is normal, Memory: is normal. 09:00 Psych: Behavior/mood is pleasant, cooperative. Vital Signs: 08:37 BP 109 / 97; Pulse 92; Resp 18; Temp 98.3; Pulse Ox 99% on R/A; Weight 104.33 kg; lp1 Height 5 ft. 6 in. (167.64 cm); 09:58 BP 127 / 74; Pulse 86; Resp 16; Pulse Ox 98% on R/A; vg1 11:09 BP 117 / 73; Pulse 73; Resp 16; Pulse Ox 98% on R/A; vg1 08:37 Body Mass Index 37.12 (104.33 kg, 167.64 cm) lp1 MDM: 08:58 Patient medically screened. [facility] 11:28 Data reviewed: vital signs, nurses notes. Counseling: I had a detailed discussion with [facility] the patient and/or guardian regarding: the historical points, exam findings, and any diagnostic results supporting the discharge/admit diagnosis, lab results, the need for outpatient follow up, to return to the emergency department if symptoms worsen or persist or if there are any questions or concerns that arise at home. ED course: Patient is alert and non toxic in appearance in the ED. No signs of resp distress. Patient advised to follow up with pcp and otherwise given strict return precautions. Patient understood and agrees with the plan of care. . 07 08:58 Order name: SARS-COV-2 RT PCR (Document "Date of Onset" if Symptomatic); Complete Time: [facility] 10:22 04/22 10:26 Order name: Saline Lock; Complete Time: 10:35 [facility] Administered Medications: 11:09 Not Given (Patient Refused): bebtelovimab 1 application IVP Per protocol vg1 11:09 Not Given (Patient Refused): diphenhydrAMINE 50 mg IVP once vg1 11:09 Not Given (Patient Refused): Acetaminophen 1000 mg PO once vg1 Disposition: 12:39 Co-signature as Attending Physician, Eldon Soto MD I agree with the assessment and kdr plan of care. Disposition Summary: 04/22/22 11:33 Discharge Ordered Location: Home [facility] Condition: Stable [facility] Diagnosis - Coronavirus infection, unspecified [facility] Followup: [facility] - With: Private Physician - When: 2 - 3 days - Reason: Recheck today's complaints, Continuance of care, Re-evaluation by your physician Discharge Instructions: - Discharge Summary Sheet [facility] - COVID-19 [facility] Forms: - Medication Reconciliation Form [facility] - Thank You Letter [facility] - Antibiotic Education [facility] - Prescription Opioid Use [facility] Prescriptions: - PAXLOVID - take 1 application by ORAL route 2 times per day for 5 days; 1 packet; Refills: [facility] 0, Product Selection Permitted - Hydroxyzine HCl 25 mg Oral Tablet - take 1 tablet by ORAL route every 6 hours As needed; 30 tablet; Refills: 0, m Product Selection Permitted Signatures: Dispatcher [employer] Eldon Haney MD MD kdr Mickail, Joel, PA PA jmm Pena, Laura, RN RN lp1 ToribioKaren RN vg1
[2022-04-22 12:06] VITALS: TEMP 98.3
[2022-04-22 12:07] VITALS: O2SAT 98
[2022-04-22 12:09] VITALS: BP 117/73
== END 2022-04-22 11:55 | disposition home or self-care (01) ==
LOC: ER 08:29
DX: J02.9 Acute pharyngitis, unspecified (principal); U07.1 COVID-19; E11.8 Type 2 diabetes mellitus with unspecified complications
CPT/HCPCS: 99283; J1200; U0003

== ENCOUNTER → 2023-11-22 | Emergency (ER) | payer BC ==
[~2023-11-22] MED LIST: LIDOCAINE 1% MPF 5 ML VIAL ONE
--- OUTSIDE RECORDS SUMMARY | 2023-11-22 02:40 | XMS REPORT | Continuity of Care Document ---
Author Name Unknown Address [address] [facility] [address] [place] [address] [facility] thconnect Address [address] [facility] 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 Ordering Clinician Indication Dosage Frequency Signature (SIG) Comments Components Source Ozempic (0.25 or 0.5 MG/DOSE) 2 MG/3ML Ozempic (0.25 or 0.5 MG/DOSE) 2 MG/3ML No Ozempic (0.25 or 0.5 MG/DOSE) 2 MG/3ML Rosuvastati n Calcium 20 MG Rosuvastati n Calcium 20 MG No 1{table t} QD Rosuvastat in Calcium 20 MG metFORMIN HCl 1000 MG metFORMIN HCl 1000 MG No 1{table t_with_ a_meal} BID metFORMIN HCl 1000 MG ZzzQuil 25 MG ZzzQuil 25 MG No 1{capsu le_at_b edtime_ as_need ed} QD ZzzQuil 25 MG Ozempic (0.25 or 0.5 MG/DOSE) 2 MG/3ML Ozempic (0.25 or 0.5 MG/DOSE) 2 MG/3ML No Ozempic (0.25 or 0.5 MG/DOSE) 2 MG/3ML Rosuvastati n Calcium 20 MG Rosuvastati n Calcium 20 MG No 1{table t} QD Rosuvastat in Calcium 20 MG metFORMIN HCl 1000 MG metFORMIN HCl 1000 MG No 1{table t_with_ a_meal} BID metFORMIN HCl 1000 MG Ozempic (0.25 or 0.5 MG/DOSE) 2 MG/3ML Ozempic (0.25 or 0.5 MG/DOSE) 2 MG/3ML No Ozempic (0.25 or 0.5 MG/DOSE) 2 MG/3ML Ozempic (0.25 or 0.5 MG/DOSE) 2 MG/3ML Ozempic (0.25 or 0.5 MG/DOSE) 2 MG/3ML No Ozempic (0.25 or 0.5 MG/DOSE) 2 MG/3ML Rosuvastati n Calcium 20 MG Rosuvastati n Calcium 20 MG No 1{table t} QD Rosuvastat in Calcium 20 MG Ozempic (0.25 or 0.5 MG/DOSE) 2 MG/3ML Ozempic (0.25 or 0.5 MG/DOSE) 2 MG/3ML No Ozempic (0.25 or 0.5 MG/DOSE) 2 MG/3ML Ozempic (0.25 or 0.5 MG/DOSE) 2 MG/3ML Ozempic (0.25 or 0.5 MG/DOSE) 2 MG/3ML No Ozempic (0.25 or 0.5 MG/DOSE) 2 MG/3ML Rosuvastati n Calcium 20 MG Rosuvastati n Calcium 20 MG No 1{table t} QD Rosuvastat in Calcium 20 MG Ozempic (0.25 or 0.5 MG/DOSE) 2 MG/3ML Ozempic (0.25 or 0.5 MG/DOSE) 2 MG/3ML No Ozempic (0.25 or 0.5 MG/DOSE) 2 MG/3ML Ozempic (0.25 or 0.5 MG/DOSE) 2 MG/3ML Ozempic (0.25 or 0.5 MG/DOSE) 2 MG/3ML No Ozempic (0.25 or 0.5 MG/DOSE) 2 MG/3ML Rosuvastati n Calcium 20 MG Rosuvastati n Calcium 20 MG No 1{table t} QD Rosuvastat in Calcium 20 MG Rosuvastati n Calcium 20 MG Rosuvastati n Calcium 20 MG No 1{table t} QD Rosuvastat in Calcium 20 MG Ozempic (0.25 or 0.5 MG/DOSE) 2 MG/3ML Ozempic (0.25 or 0.5 MG/DOSE) 2 MG/3ML No Ozempic (0.25 or 0.5 MG/DOSE) 2 MG/3ML Rosuvastati n Calcium 20 MG Rosuvastati n Calcium 20 MG No 1{table t} QD Rosuvastat in Calcium 20 MG Ozempic (0.25 or 0.5 MG/DOSE) 2 MG/3ML Ozempic (0.25 or 0.5 MG/DOSE) 2 MG/3ML No Ozempic (0.25 or 0.5 MG/DOSE) 2 MG/3ML ZzzQuil 25 MG ZzzQuil 25 MG No 1{capsu le_at_b edtime_ as_need ed} QD ZzzQuil 25 MG metFORMIN HCl 1000 MG metFORMIN HCl 1000 MG No 1{table t_with_ a_meal} BID metFORMIN HCl 1000 MG Rosuvastati n Calcium 20 MG Rosuvastati n Calcium 20 MG No 1{table t} QD Rosuvastat in Calcium 20 MG Ozempic (0.25 or 0.5 MG/DOSE) 2 MG/3ML Ozempic (0.25 or 0.5 MG/DOSE) 2 MG/3ML No Ozempic (0.25 or 0.5 MG/DOSE) 2 MG/3ML ZzzQuil 25 MG ZzzQuil 25 MG No 1{capsu le_at_b edtime_ as_need ed} QD ZzzQuil 25 MG metFORMIN HCl 1000 MG metFORMIN HCl 1000 MG No 1{table t_with_ a_meal} BID metFORMIN HCl 1000 MG Rosuvastati n Calcium 20 MG Rosuvastati n Calcium 20 MG No 1{table t} QD Rosuvastat in Calcium 20 MG Ozempic (0.25 or 0.5 MG/DOSE) 2 MG/3ML Ozempic (0.25 or 0.5 MG/DOSE) 2 MG/3ML No Ozempic (0.25 or 0.5 MG/DOSE) 2 MG/3ML ZzzQuil 25 MG ZzzQuil 25 MG No 1{capsu le_at_b edtime_ as_need ed} QD ZzzQuil 25 MG Vital Signs Vital Name Observation Time Observation Value Comments S ource height 2023-11-05 09:40:00 66 [in_i] Commo n [facility] weight 2023-11-05 09:40:00 214 [lb_av] Comm on [facility] bmi 2023-11-05 09:40:00 34.54 kg/m2 Comm on [facility] height 2023-10-03 16:00:00 66 [in_i] Commo n [facility] weight 2023-10-03 16:00:00 224.8 [lb_av] Co mmon [facility] temperature 2023-10-03 16:00:00 97.0 [degF] Com mon [facility] bmi 2023-10-03 16:00:00 36.28 kg/m2 Comm on [facility] oximetry 2023-10-03 16:00:00 98 % Commo n [facility] respiratory rate 2023-10-03 16:00:00 16 /min Common [facility] blood pressure systolic 2023-10-03 16:00:00 130 mm[Hg] Common [facility] blood pressure diastolic 2023-10-03 16:00:00 72 mm[Hg] Common [facility] oximetry 2023-07-04 16:00:00 97 % Commo n [facility] respiratory rate 2023-07-04 16:00:00 16 /min Common [facility] blood pressure systolic 2023-07-04 16:00:00 138 mm[Hg] Common [facility] blood pressure diastolic 2023-07-04 16:00:00 84 mm[Hg] [facility] height 2023-07-04 16:00:00 66 [in_i] Commo n [facility] weight 2023-07-04 16:00:00 241.6 [lb_av] Co mmon [facility] temperature 2023-07-04 16:00:00 97.2 [degF] Com [facility] bmi 2023-07-04 16:00:00 38.99 kg/m2 Comm on [facility] height 2023-04-02 16:40:00 66 [in_i] Commo n [facility] weight 2023-04-02 16:40:00 240 [lb_av] Comm on [facility] temperature 2023-04-02 16:40:00 97.2 [degF] Com [facility] bmi 2023-04-02 16:40:00 38.73 kg/m2 Comm on [facility] oximetry 2023-04-02 16:40:00 97 % Commo n [facility] respiratory rate 2023-04-02 16:40:00 16 /min Common [facility] blood pressure systolic 2023-04-02 16:40:00 134 mm[Hg] Common [facility] blood pressure diastolic 2023-04-02 16:40:00 72 mm[Hg] [facility] height 2023-02-26 15:40:00 66 [in_i] Commo n [facility] weight 2023-02-26 15:40:00 241.4 [lb_av] Co mmon [facility] temperature 2023-02-26 15:40:00 98.1 [degF] Com mon [facility] bmi 2023-02-26 15:40:00 38.96 kg/m2 Comm on [facility] oximetry 2023-02-26 15:40:00 96 % Commo n [facility] respiratory rate 2023-02-26 15:40:00 16 /min [facility] blood pressure systolic 2023-02-26 15:40:00 138 mm[Hg] [facility] blood pressure diastolic 2023-02-26 15:40:00 72 mm[Hg] [facility] Encounters Start Date/Time End Date/Time Encounter Type Admission Type Attending [facility] Care Department Encounter ID Source 2023-07-02 09:33:01 Outpatient NavarroKasie [facility]C ST[facility] [id number] [facility] 2023-03-31 10:08:02 Outpatient NavarroKasie [facility]LMLC ST[facility] [id number] [facility] 2023-02-26 15:27:02 Outpatient Kasie Navarro [facility] ST[facility] [id number] [facility] 2023-11-05 00:00:00 2023-11-05 00:00:00 OFFICE VISIT ESTAB PT LEVEL 4 [facility] STL[facility]C [id number] [facility] 2023-10-03 00:00:00 2023-10-03 00:00:00 OFFICE VISIT ESTAB PT LEVEL 4 [facility] STLMLC [id number] [facility] 2023-08-19 00:00:00 2023-08-19 00:00:00 (TEL) STLMLC STLMLC [id number] [facility] 2023-07-30 00:00:00 2023-07-30 00:00:00 (TEL) [facility]LMLC STLMLC [id number] [facility] 2023-07-04 00:00:00 2023-07-04 00:00:00 OFFICE VISIT ESTAB PT LEVEL 4 [facility] STL[facility]C [id number] [facility] 2023-04-02 00:00:00 2023-04-02 00:00:00 OFFICE VISIT ESTAB PT LEVEL 4 [facility] STL[facility]C [id number] [facility] 2023-04-02 00:00:00 2023-04-02 00:00:00 (TEL) STLMLC STLMLC [id number] [facility] 2023-02-26 00:00:00 2023-02-26 00:00:00 (TEL) STLMLC STLMLC [id number] [facility] 2023-02-26 00:00:00 2023-02-26 00:00:00 OFFICE VISIT NEW PT LEVEL 3 STLMLC STLC [id number] [facility] Results Test Description Test Time Test Comments Results Result Co mments Source HEMOGLOBIN [id number] 00:00:00* Test Item Value Reference Range Interpretation Comme [facility] HEMOGLOBIN A1c (test code = 4548-4) 5.6 % See_Comment [Automated messa ge] The system which generated this result transmitted reference range: 4.2-5.6 %. The reference range was not used to interpret this result as normal/abnormal. LIPID PANEL WITH REFLEX DIRECT [id number] 00:00:00* Test Item Value Reference Range Interpretation Comme nts CALC LDL CHOL (test code = 83901-1) 110 MG/DL See_Comment H [Automated messa ge] The system which generated this result transmitted reference range: <100 MG/DL. The reference range was not used to interpret this result as normal/abnormal. CHOLESTEROL (test code = 2093-3) 170 MG/DL See_Comment [Automated messa ge] The system which generated this result transmitted reference range: <200 MG/DL. The reference range was not used to interpret this result as normal/abnormal. HDL CHOLESTEROL (test code = 2085-9) 40 MG/DL See_Comment [Automated [employer] ge] The system which generated this result transmitted reference range: >39 MG/DL. The reference range was not used to interpret this result as normal/abnormal. RISK RATIO LDL/HDL (test code = 49869-1) 2.75 RATIO See_Comment [Automated message] The system which generated this result transmitted reference range: <3.55 RATIO. The reference range was not used to interpret this result as normal/abnormal. TRIGLYCERIDES (test code = 2571-8) 94 MG/DL See_Comment [Automated [employer] ge] The system which generated this result transmitted reference range: <150 MG/DL. The reference range was not used to interpret this result as normal/abnormal. ALBUMIN/CREATININE RATIO, RANDOM [id number] 00:00:00* Test Item Value Reference Range Interpretation Comme nts ALBUMIN, URINE, RANDOM (test code = 29569-1) 1.5 MG/DL NOT ESTAB MG/DL CALC ALBUMIN/CREAT, RND (test code = 24529-3) 7 MG/G See_Comment [Automated [employer] ge] The system which generated this result transmitted reference range: <30 MG/G. The reference range was not used to interpret this result as normal/abnormal. CREATININE, URINE, CONC. (test code = 2161-8) 220.2 MG/DL NOT ESTAB MG/DL COMPREHENSIVE METABOLIC [id number] 00:00:00* Test Item Value Reference Range Interpretation Comme nts ALBUMIN (test code = 1751-7) 4.7 G/DL See_Comment [Automated [employer] ge] The system which generated this result transmitted reference range: 3.5-5.2 G/DL. The reference range was not used to interpret this result as normal/abnormal. ALKALINE PHOSPHATASE (test code = 6768-6) 58 U/L See_Comment [Automated message] The system which generated this result transmitted reference range: 40-119 U/L. The reference range was not used to interpret this result as normal/abnormal. BILIRUBIN, TOTAL (test code = 1975-2) 0.5 MG/DL See_Comment [Automated message] The system which generated this result transmitted reference range: <=1.2 MG/DL. The reference range was not used to interpret this result as normal/abnormal. BUN (test code = 3094-0) 15 MG/DL See_Comment [Automated messa ge] The system which generated this result transmitted reference range: 6-20 MG/DL. The reference range was not used to interpret this result as normal/abnormal. CALCIUM (test code = 52450-6) 9.3 MG/DL See_Comment [Automated messa ge] The system which generated this result transmitted reference range: 8.5-10.5 MG/DL. The reference range was not used to interpret this result as normal/abnormal. CALC A/G RATIO (test code = 1759-0) 2.0 RATIO See_Comment [Automated messa ge] The system which generated this result transmitted reference range: 1.0-2.6 RATIO. The reference range was not used to interpret this result as normal/abnormal. CALC BUN/CREAT (test code = 3097-3) 17 RATIO See_Comment [Automated messa ge] The system which generated this result transmitted reference range: 6-28 RATIO. The reference range was not used to interpret this result as normal/abnormal. CALC GLOBULIN (test code = 15772-4) 2.3 G/DL See_Comment [Automated messa ge] The system which generated this result transmitted reference range: 1.9-3.7 G/DL. The reference range was not used to interpret this result as normal/abnormal. CARBON DIOXIDE (test code = 1963-8) 24 MEQ/L See_Comment [Automated messa ge] The system which generated this result transmitted reference range: 19-31 MEQ/L. The reference range was not used to interpret this result as normal/abnormal. CHLORIDE (test code = 2075-0) 103 MEQ/L See_Comment [Automated messa ge] The system which generated this result transmitted reference range: 95-107 MEQ/L. The reference range was not used to interpret this result as normal/abnormal. CREATININE (test code = 2160-0) 0.89 MG/DL See_Comment [Automated messa ge] The system which generated this result transmitted reference range: 0.80-1.40 MG/DL. The reference range was not used to interpret this result as normal/abnormal. eGFR (2020 CKD-EPI) (test code = 51801-4) 110 ML/MIN/1.73 See_Comment [Automated message] The system which generated this result transmitted reference range: >60 ML/MIN/1.73. The reference range was not used to interpret this result as normal/abnormal. GLUCOSE (test code = 1558-6) 105 MG/DL See_Comment H [Automated messa ge] The system which generated this result transmitted reference range: 70-99 MG/DL. The reference range was not used to interpret this result as normal/abnormal. POTASSIUM (test code = 2823-3) 4.8 MEQ/L See_Comment [Automated messa ge] The system which generated this result transmitted reference range: 3.5-5.4 MEQ/L. The reference range was not used to interpret this result as normal/abnormal. PROTEIN, TOTAL (test code = 2885-2) 7.0 G/DL See_Comment [Automated messa ge] The system which generated this result transmitted reference range: 6.1-8.3 G/DL. The reference range was not used to interpret this result as normal/abnormal. AST (test code = 1920-8) 26 U/L See_Comment [Automated messa ge] The system which generated this result transmitted reference range: 9-50 U/L. The reference range was not used to interpret this result as normal/abnormal. ALT (test code = 1742-6) 47 U/L See_Comment [Automated messa ge] The system which generated this result transmitted reference range: 5-50 U/L. The reference range was not used to interpret this result as normal/abnormal. SODIUM (test code = 2951-2) 141 MEQ/L See_Comment [Automated messa ge] The system which generated this result transmitted reference range: 133-146 MEQ/L. The reference range was not used to interpret this result as normal/abnormal. CBC W/AUTO [id number] 00:00:00* Test Item Value Reference Range Interpretation Comme nts NUCLEATED RBCS (test code = 99186-8) 0.0 /100 WBC'S See_Comment [Automated messa ge] The system which generated this result transmitted reference range: 0.0 /100 WBC'S. The reference range was not used to interpret this result as normal/abnormal. ABSOLUTE EOSINOPHILS (test code = 40453-2) 0.19 K/UL See_Comment [Automated messa ge] The system which generated this result transmitted reference range: 0.00-0.50 K/UL. The reference range was not used to interpret this result as normal/abnormal. ABSOLUTE LYMPHOCYTES (test code = 75014-4) 2.75 K/UL See_Comment [Automated messa ge] The system which generated this result transmitted reference range: 1.00-4.00 K/UL. The reference range was not used to interpret this result as normal/abnormal. ABSOLUTE MONOCYTES (test code = 07444-7) 0.56 K/UL See_Comment [Automated messa ge] The system which generated this result transmitted reference range: 0.20-1.00 K/UL. The reference range was not used to interpret this result as normal/abnormal. ABSOLUTE NEUTROPHILS (test code = 41555-8) 2.63 K/UL See_Comment [Automated messa ge] The system which generated this result transmitted reference range: 1.50-7.50 K/UL. The reference range was not used to interpret this result as normal/abnormal. BASOPHILS (test code = 05665-6) 0.5 % EOSINOPHILS (test code = 67935-9) 3.1 % HEMATOCRIT (test code = 21327-5) 45.3 % See_Comment [Automated messa ge] The system which generated this result transmitted reference range: 40.0-51.0 %. The reference range was not used to interpret this result as normal/abnormal. HEMOGLOBIN (test code = 718-7) 15.1 G/DL See_Comment [Automated messa ge] The system which generated this result transmitted reference range: 13.5-17.0 G/DL. The reference range was not used to interpret this result as normal/abnormal. LYMPHOCYTES (test code = 19689-1) 44.4 % MCH (test code = 14357-3) 29.5 PG See_Comment [Automated messa ge] The system which generated this result transmitted reference range: 25.0-33.0 PG. The reference range was not used to interpret this result as normal/abnormal. MCHC (test code = 33099-1) 33.3 G/DL See_Comment [Automated messa ge] The system which generated this result transmitted reference range: 31.0-36.0 G/DL. The reference range was not used to interpret this result as normal/abnormal. MCV (test code = 10168-7) 88.5 fL See_Comment [Automated messa ge] The system which generated this result transmitted reference range: 80.0-99.0 fL. The reference range was not used to interpret this result as normal/abnormal. MONOCYTES (test code = 82644-6) 9.0 % NEUTROPHILS (test code = 37739-7) 42.4 % PLATELET COUNT (test code = 74177-7) 175 K/UL See_Comment [Automated messa ge] The system which generated this result transmitted reference range: 130-400 K/UL. The reference range was not used to interpret this result as normal/abnormal. RBC (test code = 36634-6) 5.12 M/UL See_Comment [Automated messa ge] The system which generated this result transmitted reference range: 4.50-6.10 M/UL. The reference range was not used to interpret this result as normal/abnormal. RDW (test code = 58731-9) 12.9 % See_Comment [Automated messa ge] The system which generated this result transmitted reference range: 11.5-15.0 %. The reference range was not used to interpret this result as normal/abnormal. WBC (test code = 72893-2) 6.2 K/UL See_Comment [Automated messa ge] The system which generated this result transmitted reference range: 3.5-11.0 K/UL. The reference range was not used to interpret this result as normal/abnormal. [id number] 00:00:00* Test Item Value Reference Range Interpretation Comme nts GGT (test code = 2324-2) 101 U/L See_Comment H [Automated messa ge] The system which generated this result transmitted reference range: <60 U/L. The reference range was not used to interpret this result as normal/abnormal. HEMOGLOBIN [id number] 00:00:00* Test Item Value Reference Range Interpretation Comme nts HEMOGLOBIN A1c (test code = 4548-4) 7.6 % See_Comment H [Automated messa ge] The system which generated this result transmitted reference range: 4.2-5.6 %. The reference range was not used to interpret this result as normal/abnormal. HIV 1/2 4TH GEN, RFLX [id number] 00:00:00* Test Item Value Reference Range Interpretation Comme nts HIV 1/2 4TH GEN, RFLX CONF ( test code = 03906-5) NON-REACTIVE NON-REACTIVE LIPID PANEL WITH REFLEX DIRECT [id number] 00:00:00* Test Item Value Reference Range Interpretation Comme nts CALC LDL CHOL (test code = 20300-5) 60 MG/DL See_Comment [Automated messa ge] The system which generated this result transmitted reference range: <100 MG/DL. The reference range was not used to interpret this result as normal/abnormal. CHOLESTEROL (test code = 2093-3) 119 MG/DL See_Comment [Automated messa ge] The system which generated this result transmitted reference range: <200 MG/DL. The reference range was not used to interpret this result as normal/abnormal. HDL CHOLESTEROL (test code = 2085-9) 29 MG/DL See_Comment L [Automated messa ge] The system which generated this result transmitted reference range: >39 MG/DL. The reference range was not used to interpret this result as normal/abnormal. RISK RATIO LDL/HDL (test code = 13208-0) 2.07 RATIO See_Comment [Automated message] The system which generated this result transmitted reference range: <3.55 RATIO. The reference range was not used to interpret this result as normal/abnormal. TRIGLYCERIDES (test code = 2571-8) 239 MG/DL See_Comment H [Automated messa ge] The system which generated this result transmitted reference range: <150 MG/DL. The reference range was not used to interpret this result as normal/abnormal. ALBUMIN/CREATININE RATIO, RANDOM [id number] 00:00:00* Test Item Value Reference Range Interpretation Comme nts ALBUMIN, URINE, RANDOM (test code = 57836-8) 4.4 MG/DL NOT ESTAB MG/DL CALC ALBUMIN/CREAT, RND (test code = 03209-1) 20 MG/G See_Comment [Automated messa ge] The system which generated this result transmitted reference range: <30 MG/G. The reference range was not used to interpret this result as normal/abnormal. CREATININE, URINE, CONC. (test code = 2161-8) 216.7 MG/DL NOT ESTAB MG/DL COMPREHENSIVE METABOLIC [id number] 00:00:00* Test Item Value Reference Range Interpretation Comme nts ALBUMIN (test code = 1751-7) 4.5 G/DL See_Comment [Automated messa ge] The system which generated this result transmitted reference range: 3.5-5.2 G/DL. The reference range was not used to interpret this result as normal/abnormal. ALKALINE PHOSPHATASE (test code = 6768-6) 85 U/L See_Comment [Automated message] The system which generated this result transmitted reference range: 40-119 U/L. The reference range was not used to interpret this result as normal/abnormal. BILIRUBIN, TOTAL (test code = 1975-2) 0.2 MG/DL See_Comment [Automated message] The system which generated this result transmitted reference range: <=1.2 MG/DL. The reference range was not used to interpret this result as normal/abnormal. BUN (test code = 3094-0) 14 MG/DL See_Comment [Automated messa ge] The system which generated this result transmitted reference range: 6-20 MG/DL. The reference range was not used to interpret this result as normal/abnormal. CALCIUM (test code = 88373-9) 8.8 MG/DL See_Comment [Automated messa ge] The system which generated this result transmitted reference range: 8.5-10.5 MG/DL. The reference range was not used to interpret this result as normal/abnormal. CALC A/G RATIO (test code = 1759-0) 1.8 RATIO See_Comment [Automated messa ge] The system which generated this result transmitted reference range: 1.0-2.6 RATIO. The reference range was not used to interpret this result as normal/abnormal. CALC BUN/CREAT (test code = 3097-3) 21 RATIO See_Comment [Automated messa ge] The system which generated this result transmitted reference range: 6-28 RATIO. The reference range was not used to interpret this result as normal/abnormal. CALC GLOBULIN (test code = 32578-5) 2.5 G/DL See_Comment [Automated messa ge] The system which generated this result transmitted reference range: 1.9-3.7 G/DL. The reference range was not used to interpret this result as normal/abnormal. CARBON DIOXIDE (test code = 1963-8) 21 MEQ/L See_Comment [Automated messa ge] The system which generated this result transmitted reference range: 19-31 MEQ/L. The reference range was not used to interpret this result as normal/abnormal. CHLORIDE (test code = 2075-0) 103 MEQ/L See_Comment [Automated messa ge] The system which generated this result transmitted reference range: 95-107 MEQ/L. The reference range was not used to interpret this result as normal/abnormal. CREATININE (test code = 2160-0) 0.67 MG/DL See_Comment L [Automated messa ge] The system which generated this result transmitted reference range: 0.80-1.40 MG/DL. The reference range was not used to interpret this result as normal/abnormal. eGFR (2020 CKD-EPI) (test code = 24622-1) 120 ML/MIN/1.73 See_Comment [Automated message] The system which generated this result transmitted reference range: >60 ML/MIN/1.73. The reference range was not used to interpret this result as normal/abnormal. GLUCOSE (test code = 1558-6) 183 MG/DL See_Comment H [Automated messa ge] The system which generated this result transmitted reference range: 70-99 MG/DL. The reference range was not used to interpret this result as normal/abnormal. POTASSIUM (test code = 2823-3) 4.4 MEQ/L See_Comment [Automated messa ge] The system which generated this result transmitted reference range: 3.5-5.4 MEQ/L. The reference range was not used to interpret this result as normal/abnormal. PROTEIN, TOTAL (test code = 2885-2) 7.0 G/DL See_Comment [Automated messa ge] The system which generated this result transmitted reference range: 6.1-8.3 G/DL. The reference range was not used to interpret this result as normal/abnormal. AST (test code = 1920-8) 51 U/L See_Comment H [Automated messa ge] The system which generated this result transmitted reference range: 9-50 U/L. The reference range was not used to interpret this result as normal/abnormal. ALT (test code = 1742-6) 117 U/L See_Comment H [Automated messa ge] The system which generated this result transmitted reference range: 5-50 U/L. The reference range was not used to interpret this result as normal/abnormal. SODIUM (test code = 2951-2) 138 MEQ/L See_Comment [Automated messa ge] The system which generated this result transmitted reference range: 133-146 MEQ/L. The reference range was not used to interpret this result as normal/abnormal. ACUTE HEPATITIS [id number] 00:00:00* Test Item Value Reference Range Interpretation Comme nts HEPATITIS A IgM (test code = 57668-4) NON-REACTIVE NON-REACTIVE HEPATITIS B CORE IgM (test c ode = 16889-0) NON-REACTIVE NON-REACTIVE HEPATITIS B SURF AG (test co de = 5195-3) NON-REACTIVE NON-REACTIVE HEPATITIS C ANTIBODY (test c ode = 35283-3) NON-REACTIVE NON-REACTIVE CBC W/AUTO [id number] 00:00:00* Test Item Value Reference Range Interpretation Comme nts NUCLEATED RBCS (test code = 71344-3) 0.0 /100 WBC'S See_Comment [Automated [employer] ge] The system which generated this result transmitted reference range: 0.0 /100 WBC'S. The reference range was not used to interpret this result as normal/abnormal. ABSOLUTE EOSINOPHILS (test code = 90591-2) 0.29 K/UL See_Comment [Automated [employer] ge] The system which generated this result transmitted reference range: 0.00-0.50 K/UL. The reference range was not used to interpret this result as normal/abnormal. ABSOLUTE LYMPHOCYTES (test code = 97534-4) 2.73 K/UL See_Comment [Automated [employer] ge] The system which generated this result transmitted reference range: 1.00-4.00 K/UL. The reference range was not used to interpret this result as normal/abnormal. ABSOLUTE MONOCYTES (test code = 59392-3) 0.54 K/UL See_Comment [Automated [employer] ge] The system which generated this result transmitted reference range: 0.20-1.00 K/UL. The reference range was not used to interpret this result as normal/abnormal. ABSOLUTE NEUTROPHILS (test code = 48755-8) 3.44 K/UL See_Comment [Automated [employer] Conyac] The system which generated this result transmitted reference range: 1.50-7.50 K/UL. The reference range was not used to interpret this result as normal/abnormal. BASOPHILS (test code = 94352-3) 0.4 % EOSINOPHILS (test code = 18843-0) 4.1 % HEMATOCRIT (test code = 48879-6) 46.7 % See_Comment [Automated messa ge] The system which generated this result transmitted reference range: 40.0-51.0 %. The reference range was not used to interpret this result as normal/abnormal. HEMOGLOBIN (test code = 718-7) 16.4 G/DL See_Comment [Automated messa ge] The system which generated this result transmitted reference range: 13.5-17.0 G/DL. The reference range was not used to interpret this result as normal/abnormal. LYMPHOCYTES (test code = 49445-9) 38.5 % MCH (test code = 14239-6) 30.3 PG See_Comment [Automated messa ge] The system which generated this result transmitted reference range: 25.0-33.0 PG. The reference range was not used to interpret this result as normal/abnormal. MCHC (test code = 27717-1) 35.1 G/DL See_Comment [Automated messa ge] The system which generated this result transmitted reference range: 31.0-36.0 G/DL. The reference range was not used to interpret this result as normal/abnormal. MCV (test code = 89908-3) 86.2 fL See_Comment [Automated messa ge] The system which generated this result transmitted reference range: 80.0-99.0 fL. The reference range was not used to interpret this result as normal/abnormal. MONOCYTES (test code = 21603-6) 7.6 % NEUTROPHILS (test code = 34834-0) 48.6 % PLATELET COUNT (test code = 68166-6) 198 K/UL See_Comment [Automated messa ge] The system which generated this result transmitted reference range: 130-400 K/UL. The reference range was not used to interpret this result as normal/abnormal. RBC (test code = 85234-1) 5.42 M/UL See_Comment [Automated messa ge] The system which generated this result transmitted reference range: 4.50-6.10 M/UL. The reference range was not used to interpret this result as normal/abnormal. RDW (test code = 75371-1) 13.0 % See_Comment [Automated messa ge] The system which generated this result transmitted reference range: 11.5-15.0 %. The reference range was not used to interpret this result as normal/abnormal. WBC (test code = 33792-0) 7.1 K/UL See_Comment [Automated messa ge] The system which generated this result transmitted reference range: 3.5-11.0 K/UL. The reference range was not used to interpret this result as normal/abnormal. HEMOGLOBIN [id number] 00:00:00* Test Item Value Reference Range Interpretation Comme nts HEMOGLOBIN A1c (test code = 4548-4) 7.4 % See_Comment H [Automated messa ge] The system which generated this result transmitted reference range: 4.2-5.6 %. The reference range was not used to interpret this result as normal/abnormal. LIPID PANEL WITH REFLEX DIRECT [id number] 00:00:00* Test Item Value Reference Range Interpretation Comme nts CALC LDL CHOL (test code = 33729-5) 125 MG/DL See_Comment H [Automated messa ge] The system which generated this result transmitted reference range: <100 MG/DL. The reference range was not used to interpret this result as normal/abnormal. CHOLESTEROL (test code = 2093-3) 194 MG/DL See_Comment [Automated messa ge] The system which generated this result transmitted reference range: <200 MG/DL. The reference range was not used to interpret this result as normal/abnormal. HDL CHOLESTEROL (test code = 2085-9) 37 MG/DL See_Comment L [Automated messa ge] The system which generated this result transmitted reference range: >39 MG/DL. The reference range was not used to interpret this result as normal/abnormal. RISK RATIO LDL/HDL (test code = 89879-8) 3.38 RATIO See_Comment [Automated message] The system which generated this result transmitted reference range: <3.55 RATIO. The reference range was not used to interpret this result as normal/abnormal. TRIGLYCERIDES (test code = 2571-8) 205 MG/DL See_Comment H [Automated messa ge] The system which generated this result transmitted reference range: <150 MG/DL. The reference range was not used to interpret this result as normal/abnormal. TSH + FREE T4 [id number] 00:00:00* Test Item Value Reference Range Interpretation Comme nts FREE T4 (THYROXINE) (test code = 3024-7) 1.14 NG/DL See_Comment [Automated message] The system which generated this result transmitted reference range: 0.80-1.90 NG/DL. The reference range was not used to interpret this result as normal/abnormal. TSH, THIRD GENERATION (test code = 02506-3) 2.030 UIU/ML See_Comment [Automated messa ge] The system which generated this result transmitted reference range: 0.400-4.100 UIU/ML. The reference range was not used to interpret this result as normal/abnormal. VITAMIN B 12 AND FOLIC [id number] 00:00:00* Test Item Value Reference Range Interpretation Comme nts FOLIC ACID (test code = 2284-8) 17.0 UG/L SEE BELOW UG/L VITAMIN B-12 (test code = 2132-9) 744 PG/ML See_Comment [Automated messa ge] The system which generated this result transmitted reference range: 200-950 PG/ML. The reference range was not used to interpret this result as normal/abnormal. TESTOSTERONE, BIOAVAILABLE, FREE AND [id number] 00:00:00* Test Item Value Reference Range Interpretation Comme nts SEX HORM BIND GLOBULIN (test code = 73802-4) 20.8 NMOL/L See_Comment [Automated messa ge] The system which generated this result transmitted reference range: 16.5-55.9 NMOL/L. The reference range was not used to interpret this result as normal/abnormal. TESTOSTERONE,% FREE CALC (test code = 20604-9) 2.6 % See_Comment [Automated messa ge] The system which generated this result transmitted reference range: 1.6-2.9 %. The reference range was not used to interpret this result as normal/abnormal. TESTOSTERONE,BIOAVAI L,CALC (test code = 2990-0) 223.2 NG/DL See_Comment [Automated messa ge] The system which generated this result transmitted reference range: 130.0-680.0 NG/DL. The reference range was not used to interpret this result as normal/abnormal. TESTOSTERONE,CALC FREE (test code = 2991-8) 95.2 PG/ML See_Comment [Automated messa ge] The system which generated this result transmitted reference range: 47.0-244.0 PG/ML. The reference range was not used to interpret this result as normal/abnormal. TESTOSTERONE, TOTAL (test code = 2986-8) 372 NG/DL See_Comment [Automated message] The system which generated this result transmitted reference range: 300-890 NG/DL. The reference range was not used to interpret this result as normal/abnormal. COMPREHENSIVE METABOLIC [id number] 00:00:00* Test Item Value Reference Range Interpretation Comme nts ALBUMIN (test code = 1751-7) 4.7 G/DL See_Comment [Automated messa ge] The system which generated this result transmitted reference range: 3.5-5.2 G/DL. The reference range was not used to interpret this result as normal/abnormal. ALKALINE PHOSPHATASE (test code = 6768-6) 86 U/L See_Comment [Automated message] The system which generated this result transmitted reference range: 40-119 U/L. The reference range was not used to interpret this result as normal/abnormal. BILIRUBIN, TOTAL (test code = 1975-2) 0.5 MG/DL See_Comment [Automated message] The system which generated this result transmitted reference range: <=1.2 MG/DL. The reference range was not used to interpret this result as normal/abnormal. BUN (test code = 3094-0) 14 MG/DL See_Comment [Automated messa ge] The system which generated this result transmitted reference range: 6-20 MG/DL. The reference range was not used to interpret this result as normal/abnormal. CALCIUM (test code = 15713-0) 9.3 MG/DL See_Comment [Automated messa ge] The system which generated this result transmitted reference range: 8.5-10.5 MG/DL. The reference range was not used to interpret this result as normal/abnormal. CALC A/G RATIO (test code = 1759-0) 1.8 RATIO See_Comment [Automated messa ge] The system which generated this result transmitted reference range: 1.0-2.6 RATIO. The reference range was not used to interpret this result as normal/abnormal. CALC BUN/CREAT (test code = 3097-3) 19 RATIO See_Comment [Automated messa ge] The system which generated this result transmitted reference range: 6-28 RATIO. The reference range was not used to interpret this result as normal/abnormal. CALC GLOBULIN (test code = 33980-2) 2.6 G/DL See_Comment [Automated messa ge] The system which generated this result transmitted reference range: 1.9-3.7 G/DL. The reference range was not used to interpret this result as normal/abnormal. CARBON DIOXIDE (test code = 1963-8) 23 MEQ/L See_Comment [Automated messa ge] The system which generated this result transmitted reference range: 19-31 MEQ/L. The reference range was not used to interpret this result as normal/abnormal. CHLORIDE (test code = 2075-0) 101 MEQ/L See_Comment [Automated messa ge] The system which generated this result transmitted reference range: 95-107 MEQ/L. The reference range was not used to interpret this result as normal/abnormal. CREATININE (test code = 2160-0) 0.73 MG/DL See_Comment L [Automated messa ge] The system which generated this result transmitted reference range: 0.80-1.40 MG/DL. The reference range was not used to interpret this result as normal/abnormal. eGFR (2020 CKD-EPI) (test code = 77290-8) 116 ML/MIN/1.73 See_Comment [Automated message] The system which generated this result transmitted reference range: >60 ML/MIN/1.73. The reference range was not used to interpret this result as normal/abnormal. GLUCOSE (test code = 1558-6) 198 MG/DL See_Comment H [Automated messa ge] The system which generated this result transmitted reference range: 70-99 MG/DL. The reference range was not used to interpret this result as normal/abnormal. POTASSIUM (test code = 2823-3) 4.6 MEQ/L See_Comment [Automated messa ge] The system which generated this result transmitted reference range: 3.5-5.4 MEQ/L. The reference range was not used to interpret this result as normal/abnormal. PROTEIN, TOTAL (test code = 2885-2) 7.3 G/DL See_Comment [Automated messa ge] The system which generated this result transmitted reference range: 6.1-8.3 G/DL. The reference range was not used to interpret this result as normal/abnormal. AST (test code = 1920-8) 53 U/L See_Comment H [Automated messa ge] The system which generated this result transmitted reference range: 9-50 U/L. The reference range was not used to interpret this result as normal/abnormal. ALT (test code = 1742-6) 126 U/L See_Comment H [Automated [employer]ac] The system which generated this result transmitted reference range: 5-50 U/L. The reference range was not used to interpret this result as normal/abnormal. SODIUM (test code = 2951-2) 139 MEQ/L See_Comment [Automated [employer]ac] The system which generated this result transmitted reference range: 133-146 MEQ/L. The reference range was not used to interpret this result as normal/abnormal.
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
[2023-11-22 07:00] VITALS: BP 122/66; TEMP 98.7; O2SAT 98
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
== END ==
LOC: ER 02:36
PROC: 0HQ1XZZ Repair Face Skin, External Approach (ICD-10-PCS; principal; 2023-11-22)
DX: S02.831A Fracture of medial orbital wall, right side, initial encounter for closed fracture (principal); S02.2XXA Fracture of nasal bones, initial encounter for closed fracture; S01.111A Laceration without foreign body of right eyelid and periocular area, initial encounter; Y04.8XXA Assault by other bodily force, initial encounter; E11.9 Type 2 diabetes mellitus without complications
CPT/HCPCS: 70450; 72125; 70486; 76377; 12013; J2001

== ENCOUNTER → 2023-12-27 | Emergency (ER) | payer BC ==
[~2023-12-27] MED LIST changes: -LIDOCAINE 1% MPF 5 ML VIAL ONE; +TDAP (DIPHTH,PERTUSS(ACELL),TET VAC) 0.5 ML VIAL IMVAC ONE
--- OUTSIDE RECORDS SUMMARY | 2023-12-27 19:32 | XMS REPORT | Continuity of Care Document ---
Author Name Unknown Address [address] [facility] [address] [place] [address] [facility] thconnect Address [address] 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 Ordering Clinician Indication Dosage Frequency Signature (SIG) Comments Components Source ZzzQuil 25 MG ZzzQuil 25 MG No [...] Ozempic (0.25 or 0.5 MG/DOSE) 2 MG/3ML Vital Signs Vital Name Observation Time Observation Value Comments S marielce height 2023-11-05 09:40:00 66 [in_i] Commo n [facility] weight 2023-11-05 09:40:00 214 [lb_av] Comm on [facility] bmi 2023-11-05 09:40:00 34.54 kg/m2 Comm on [facility] height 2023-10-03 16:00:00 66 [in_i] Commo n [facility] weight 2023-10-03 16:00:00 224.8 [lb_av] Co mmon [facility] temperature 2023-10-03 16:00:00 97.0 [degF] Com mon [facility] bmi 2023-10-03 16:00:00 36.28 kg/m2 Comm on [facility] oximetry 2023-10-03 16:00:00 98 % Commo n [facility] respiratory rate 2023-10-03 16:00:00 16 /min Common [facility] blood pressure systolic 2023-10-03 16:00:00 130 mm[Hg] [facility] blood pressure diastolic 2023-10-03 16:00:00 72 mm[Hg] [facility] oximetry 2023-07-04 16:00:00 97 % Commo n [facility] respiratory rate 2023-07-04 16:00:00 16 /min Common [facility] blood pressure systolic 2023-07-04 16:00:00 138 mm[Hg] [facility] blood pressure diastolic 2023-07-04 16:00:00 84 mm[Hg] [facility] height 2023-07-04 16:00:00 66 [in_i] Commo n [facility] weight 2023-07-04 16:00:00 241.6 [lb_av] Co mmon [facility] temperature 2023-07-04 16:00:00 97.2 [degF] Com [facility] bmi 2023-07-04 16:00:00 38.99 kg/m2 Comm on [facility] height 2023-04-02 16:40:00 66 [in_i] Commo n [facility] weight 2023-04-02 16:40:00 240 [lb_av] Comm on [facility] temperature 2023-04-02 16:40:00 97.2 [degF] Com mon [facility] bmi 2023-04-02 16:40:00 38.73 kg/m2 Comm on [facility] oximetry 2023-04-02 16:40:00 97 % Commo n [facility] respiratory rate 2023-04-02 16:40:00 16 /min [facility] blood pressure systolic 2023-04-02 16:40:00 134 mm[Hg] Common [facility] blood pressure diastolic 2023-04-02 16:40:00 72 mm[Hg] [facility] height 2023-02-26 15:40:00 66 [in_i] Commo n [facility] weight 2023-02-26 15:40:00 241.4 [lb_av] Co mmon [facility] temperature 2023-02-26 15:40:00 98.1 [degF] Com mon [facility] bmi 2023-02-26 15:40:00 38.96 kg/m2 Comm on [facility] oximetry 2023-02-26 15:40:00 96 % Commo n [facility] respiratory rate 2023-02-26 15:40:00 16 /min [facility] blood pressure systolic 2023-02-26 15:40:00 138 mm[Hg] [facility] blood pressure diastolic 2023-02-26 15:40:00 72 mm[Hg] [facility] Encounters Start Date/Time End Date/Time Encounter Type Admission Type Attending [facility] Facility Care Department Encounter ID Source 2023-11-27 08:50:01 Outpatient RamonKasie STLC STLC [id number] [facility] 2023-07-02 09:33:01 Outpatient Ramon Kasie STLC STLMLC [id number] [facility] 2023-03-31 10:08:02 Outpatient Ramon Kasie STLC STLMLC [id number] [facility] 2023-02-26 15:27:02 Outpatient Ramon Kasie STLC STLMLC [id number] [facility] 2023-11-24 00:00:00 2023-11-24 00:00:00 (TEL) STLMLC STLMLC [id number] [facility] 2023-11-05 00:00:00 2023-11-05 00:00:00 OFFICE VISIT ESTAB PT LEVEL 4 STLMLC STLMLC [id number] [facility] 2023-10-03 00:00:00 2023-10-03 00:00:00 OFFICE VISIT ESTAB PT LEVEL 4 STLMLC STLMLC [id number] [facility] 2023-08-19 00:00:00 2023-08-19 00:00:00 (TEL) STLMLC STLMLC [id number] [facility] 2023-07-30 00:00:00 2023-07-30 00:00:00 (TEL) STLMLC STLMLC [id number] [facility] 2023-07-04 00:00:00 2023-07-04 00:00:00 OFFICE VISIT ESTAB PT LEVEL 4 STLMLC STLMLC [id number] [facility] 2023-04-02 00:00:00 2023-04-02 00:00:00 OFFICE VISIT ESTAB PT LEVEL 4 STLMLC STLMLC [id number] [facility] 2023-04-02 00:00:00 2023-04-02 00:00:00 (TEL) STLMLC STLMLC [id number] [facility] 2023-02-26 00:00:00 2023-02-26 00:00:00 (TEL) STLMLC STLMLC [id number] [facility] 2023-02-26 00:00:00 2023-02-26 00:00:00 OFFICE VISIT NEW PT LEVEL 3 STLMLC STLMLC [id number] [facility] Results Test Description Test Time Test Comments Results Result Co mments Source HEMOGLOBIN [id number] 00:00:00* Test Item Value Reference Range Interpretation Comme nts HEMOGLOBIN A1c (test code = 4548-4) 5.6 % See_Comment [Automated [employer] ge] The system which generated this result transmitted reference range: 4.2-5.6 %. The reference range was not used to interpret this result as normal/abnormal. LIPID PANEL WITH REFLEX DIRECT [id number] 00:00:00* Test Item Value Reference Range Interpretation Comme nts CALC LDL CHOL (test code = 73114-6) 110 MG/DL See_Comment H [Automated messa ge] [...] code = 2085-9) 40 MG/DL See_Comment [Automated [employer] ge] The system which generated this result transmitted reference range: >39 MG/DL. The reference range was not used to interpret this result as normal/abnormal. RISK RATIO LDL/HDL (test code = 10533-0) 2.75 RATIO See_Comment [Automated message] The system which generated this result transmitted reference range: <3.55 RATIO. The reference range was not used to interpret this result as normal/abnormal. TRIGLYCERIDES (test code = 2571-8) 94 MG/DL See_Comment [Automated messa ge] The system which generated this result transmitted reference range: <150 MG/DL. The reference range was not used to interpret this result as normal/abnormal. ALBUMIN/CREATININE RATIO, RANDOM [id number] 00:00:00* Test Item Value Reference Range Interpretation Comme nts ALBUMIN, URINE, RANDOM (test code = 60030-2) 1.5 MG/DL NOT ESTAB MG/DL CALC ALBUMIN/CREAT, RND (test code = 12840-4) 7 MG/G See_Comment [Automated [employer] ge] The system which generated this result transmitted reference range: <30 MG/G. The reference range was not used to interpret this result as normal/abnormal. CREATININE, URINE, CONC. (test code = 2161-8) 220.2 MG/DL NOT ESTAB MG/DL COMPREHENSIVE METABOLIC [id number] 00:00:00* Test Item Value Reference Range Interpretation [...] result as normal/abnormal. CALCIUM (test code = 72061-4) 9.3 MG/DL See_Comment [Automated messa ge] The [...] as normal/abnormal. CALC GLOBULIN (test code = 21983-0) 2.3 G/DL See_Comment [Automated messa ge] The [...] normal/abnormal. eGFR (2020 CKD-EPI) (test code = 41227-1) 110 ML/MIN/1.73 See_Comment [Automated message] The system [...] code = 2885-2) 7.0 G/DL See_Comment [Automated [employer] ge] The system which generated this result [...] interpret this result as normal/abnormal. CBC W/AUTO [id number] 00:00:00* Test Item Value Reference Range Interpretation Comme nts NUCLEATED RBCS (test code = 43988-2) 0.0 /100 WBC'S See_Comment [Automated messa ge] The system which generated this result transmitted reference range: 0.0 /100 WBC'S. The reference range was not used to interpret this result as normal/abnormal. ABSOLUTE EOSINOPHILS (test code = 70275-3) 0.19 K/UL See_Comment [Automated messa ge] The system which generated this result transmitted reference range: 0.00-0.50 K/UL. The reference range was not used to interpret this result as normal/abnormal. ABSOLUTE LYMPHOCYTES (test code = 78819-8) 2.75 K/UL See_Comment [Automated messa ge] The system which generated this result transmitted reference range: 1.00-4.00 K/UL. The reference range was not used to interpret this result as normal/abnormal. ABSOLUTE MONOCYTES (test code = 36305-6) 0.56 K/UL See_Comment [Automated messa ge] The system which generated this result transmitted reference range: 0.20-1.00 K/UL. The reference range was not used to interpret this result as normal/abnormal. ABSOLUTE NEUTROPHILS (test code = 47931-0) 2.63 K/UL See_Comment [Automated messa ge] The system which generated this result transmitted reference range: 1.50-7.50 K/UL. The reference range was not used to interpret this result as normal/abnormal. BASOPHILS (test code = 52165-0) 0.5 % EOSINOPHILS (test code = 82844-9) 3.1 % HEMATOCRIT (test code = 66629-5) 45.3 % See_Comment [Automated messa ge] The [...] result as normal/abnormal. LYMPHOCYTES (test code = 52381-0) 44.4 % MCH (test code = 34640-6) 29.5 PG See_Comment [Automated messa ge] The system which generated this result transmitted reference range: 25.0-33.0 PG. The reference range was not used to interpret this result as normal/abnormal. MCHC (test code = 02551-6) 33.3 G/DL See_Comment [Automated messa ge] The system which generated this result transmitted reference range: 31.0-36.0 G/DL. The reference range was not used to interpret this result as normal/abnormal. MCV (test code = 07052-6) 88.5 fL See_Comment [Automated messa ge] The system which generated this result transmitted reference range: 80.0-99.0 fL. The reference range was not used to interpret this result as normal/abnormal. MONOCYTES (test code = 86435-1) 9.0 % NEUTROPHILS (test code = 57741-0) 42.4 % PLATELET COUNT (test code = 83384-6) 175 K/UL See_Comment [Automated messa ge] The system which generated this result transmitted reference range: 130-400 K/UL. The reference range was not used to interpret this result as normal/abnormal. RBC (test code = 54217-0) 5.12 M/UL See_Comment [Automated messa ge] The system which generated this result transmitted reference range: 4.50-6.10 M/UL. The reference range was not used to interpret this result as normal/abnormal. RDW (test code = 09136-5) 12.9 % See_Comment [Automated messa ge] The system which generated this result transmitted reference range: 11.5-15.0 %. The reference range was not used to interpret this result as normal/abnormal. WBC (test code = 41074-2) 6.2 K/UL See_Comment [Automated messa ge] The system which generated this result transmitted reference range: 3.5-11.0 K/UL. The reference range was not used to interpret this result as normal/abnormal. [id number] 00:00:00* Test Item Value Reference Range Interpretation Comme nts GGT (test code = 2324-2) 101 U/L See_Comment H [Automated messa ge] The system which generated this result transmitted reference range: <60 U/L. The reference range was not used to interpret this result as normal/abnormal. HEMOGLOBIN [id number] 00:00:00* Test Item Value Reference Range Interpretation [facility] HEMOGLOBIN A1c (test code = 4548-4) 7.6 % See_Comment H [Automated messa ge] The system which generated this result transmitted reference range: 4.2-5.6 %. The reference range was not used to interpret this result as normal/abnormal. HIV 1/2 4TH GEN, RFLX [id number] 00:00:00* Test Item Value Reference Range Interpretation [facility] HIV 1/2 4TH GEN, RFLX CONF ( test code = 68284-7) NON-REACTIVE NON-REACTIVE LIPID PANEL WITH REFLEX DIRECT [id number] 00:00:00* Test Item Value Reference Range Interpretation [facility] CALC LDL CHOL (test code = 33809-6) 60 MG/DL See_Comment [Automated messa ge] The [...] normal/abnormal. RISK RATIO LDL/HDL (test code = 43708-9) 2.07 RATIO See_Comment [Automated message] The system [...] this result as normal/abnormal. ALBUMIN/CREATININE RATIO, RANDOM [id number] 00:00:00* Test Item Value Reference Range Interpretation Comme nts ALBUMIN, URINE, RANDOM (test code = 63951-2) 4.4 MG/DL NOT ESTAB MG/DL CALC ALBUMIN/CREAT, RND (test code = 81677-5) 20 MG/G See_Comment [Automated messa ge] The system which generated this result transmitted reference range: <30 MG/G. The reference range was not used to interpret this result as normal/abnormal. CREATININE, URINE, CONC. (test code = 2161-8) 216.7 MG/DL NOT ESTAB MG/DL COMPREHENSIVE METABOLIC [id number] 00:00:00* Test Item Value Reference Range Interpretation [...] result as normal/abnormal. CALCIUM (test code = 51264-7) 8.8 MG/DL See_Comment [Automated messa ge] The system which generated this result transmitted reference range: 8.5-10.5 MG/DL. The reference range was not used to interpret this result as normal/abnormal. CALC A/G RATIO (test code = 1759-0) 1.8 RATIO See_Comment [Automated [employer]] The system which generated this result [...] as normal/abnormal. CALC GLOBULIN (test code = 91270-0) 2.5 G/DL See_Comment [Automated messa ge] The [...] normal/abnormal. eGFR (2020 CKD-EPI) (test code = 40884-9) 120 ML/MIN/1.73 See_Comment [Automated message] The system [...] interpret this result as normal/abnormal. ACUTE HEPATITIS [id number] 00:00:00* Test Item Value Reference Range Interpretation Comme nts HEPATITIS A IgM (test code = 09164-6) NON-REACTIVE NON-REACTIVE HEPATITIS B CORE IgM (test c ode = 33730-4) NON-REACTIVE NON-REACTIVE HEPATITIS B SURF AG (test co de = 5195-3) NON-REACTIVE NON-REACTIVE HEPATITIS C ANTIBODY (test c ode = 29644-7) NON-REACTIVE NON-REACTIVE CBC W/AUTO [id number] 00:00:00* Test Item Value Reference Range Interpretation Comme nts NUCLEATED RBCS (test code = 90029-8) 0.0 /100 WBC'S See_Comment [Automated messa ge] The system which generated this result transmitted reference range: 0.0 /100 WBC'S. The reference range was not used to interpret this result as normal/abnormal. ABSOLUTE EOSINOPHILS (test code = 50253-3) 0.29 K/UL See_Comment [Automated messa ge] The system which generated this result transmitted reference range: 0.00-0.50 K/UL. The reference range was not used to interpret this result as normal/abnormal. ABSOLUTE LYMPHOCYTES (test code = 75886-7) 2.73 K/UL See_Comment [Automated messa ge] The system which generated this result transmitted reference range: 1.00-4.00 K/UL. The reference range was not used to interpret this result as normal/abnormal. ABSOLUTE MONOCYTES (test code = 90219-6) 0.54 K/UL See_Comment [Automated messa ge] The system which generated this result transmitted reference range: 0.20-1.00 K/UL. The reference range was not used to interpret this result as normal/abnormal. ABSOLUTE NEUTROPHILS (test code = 38676-3) 3.44 K/UL See_Comment [Automated messa ge] The system which generated this result transmitted reference range: 1.50-7.50 K/UL. The reference range was not used to interpret this result as normal/abnormal. BASOPHILS (test code = 78828-3) 0.4 % EOSINOPHILS (test code = 29896-5) 4.1 % HEMATOCRIT (test code = 69518-4) 46.7 % See_Comment [Automated messa ge] The [...] result as normal/abnormal. LYMPHOCYTES (test code = 69299-3) 38.5 % MCH (test code = 41102-7) 30.3 PG See_Comment [Automated messa ge] The system which generated this result transmitted reference range: 25.0-33.0 PG. The reference range was not used to interpret this result as normal/abnormal. MCHC (test code = 69975-7) 35.1 G/DL See_Comment [Automated messa ge] The system which generated this result transmitted reference range: 31.0-36.0 G/DL. The reference range was not used to interpret this result as normal/abnormal. MCV (test code = 04338-0) 86.2 fL See_Comment [Automated messa ge] The system which generated this result transmitted reference range: 80.0-99.0 fL. The reference range was not used to interpret this result as normal/abnormal. MONOCYTES (test code = 15876-4) 7.6 % NEUTROPHILS (test code = 08398-4) 48.6 % PLATELET COUNT (test code = 67127-5) 198 K/UL See_Comment [Automated messa ge] The system which generated this result transmitted reference range: 130-400 K/UL. The reference range was not used to interpret this result as normal/abnormal. RBC (test code = 18066-1) 5.42 M/UL See_Comment [Automated messa ge] The system which generated this result transmitted reference range: 4.50-6.10 M/UL. The reference range was not used to interpret this result as normal/abnormal. RDW (test code = 95442-4) 13.0 % See_Comment [Automated messa ge] The system which generated this result transmitted reference range: 11.5-15.0 %. The reference range was not used to interpret this result as normal/abnormal. WBC (test code = 01586-1) 7.1 K/UL See_Comment [Automated messa ge] The system which generated this result transmitted reference range: 3.5-11.0 K/UL. The reference range was not used to interpret this result as normal/abnormal. HEMOGLOBIN [id number] 00:00:00* Test Item Value Reference Range Interpretation Comme [facility] HEMOGLOBIN A1c (test code = 4548-4) 7.4 % See_Comment H [Automated messa ge] The system which generated this result transmitted reference range: 4.2-5.6 %. The reference range was not used to interpret this result as normal/abnormal. LIPID PANEL WITH REFLEX DIRECT [id number] 00:00:00* Test Item Value Reference Range Interpretation Comme nts CALC LDL CHOL (test code = 83658-0) 125 MG/DL See_Comment H [Automated messa ge] [...] normal/abnormal. RISK RATIO LDL/HDL (test code = 34414-4) 3.38 RATIO See_Comment [Automated message] The system which generated this result transmitted reference range: <3.55 RATIO. The reference range was not used to interpret this result as normal/abnormal. TRIGLYCERIDES (test code = 2571-8) 205 MG/DL See_Comment H [Automated [employer]] The system which generated this result transmitted reference range: <150 MG/DL. The reference range was not used to interpret this result as normal/abnormal. TSH + FREE T4 [id number] 00:00:00* Test Item Value Reference Range Interpretation Comme nts FREE T4 (THYROXINE) (test code = 3024-7) 1.14 NG/DL See_Comment [Automated message] The system which generated this result transmitted reference range: 0.80-1.90 NG/DL. The reference range was not used to interpret this result as normal/abnormal. TSH, THIRD GENERATION (test code = 65675-4) 2.030 UIU/ML See_Comment [Automated [employer]] The system which generated this result transmitted reference range: 0.400-4.100 UIU/ML. The reference range was not used to interpret this result as normal/abnormal. VITAMIN B 12 AND FOLIC [id number] 00:00:00* Test Item Value Reference Range Interpretation Comme nts FOLIC ACID (test code = 2284-8) 17.0 UG/L SEE BELOW UG/L VITAMIN B-12 (test code = 2132-9) 744 PG/ML See_Comment [Automated [employer] Sequence] The system which generated this result transmitted reference range: 200-950 PG/ML. The reference range was not used to interpret this result as normal/abnormal. TESTOSTERONE, BIOAVAILABLE, FREE AND [id number] 00:00:00* Test Item Value Reference Range Interpretation Comme nts SEX HORM BIND GLOBULIN (test code = 89199-6) 20.8 NMOL/L See_Comment [Automated [employer] Sequence] The system which generated this result transmitted reference range: 16.5-55.9 NMOL/L. The reference range was not used to interpret this result as normal/abnormal. TESTOSTERONE,% FREE CALC (test code = 66469-9) 2.6 % See_Comment [Automated messa ge] The [...] interpret this result as normal/abnormal. COMPREHENSIVE METABOLIC [id number] 00:00:00* Test Item Value Reference Range Interpretation [...] result as normal/abnormal. CALCIUM (test code = 43738-3) 9.3 MG/DL See_Comment [Automated messa ge] The [...] as normal/abnormal. CALC GLOBULIN (test code = 87833-2) 2.6 G/DL See_Comment [Automated messa ge] The [...] normal/abnormal. eGFR (2020 CKD-EPI) (test code = 43278-6) 116 ML/MIN/1.73 See_Comment [Automated message] The system [...] = 1742-6) 126 U/L See_Comment H [Automated messa ge] The system which generated this result transmitted reference range: 5-50 U/L. The reference range was not used to interpret this result as normal/abnormal. SODIUM (test code = 2951-2) 139 MEQ/L See_Comment [Automated messa ge] The system which generated this result transmitted reference range: 133-146 MEQ/L. The reference range was not used to interpret this result as normal/abnormal.
--- NOTE | 2023-12-27 20:44 | RAD REPORT ---
EXAM DESCRIPTION: RAD - Hand Right 3 View - 12/27/2023 8:35 pm CLINICAL HISTORY: puncture wound left index finger;Pain COMPARISON: No comparisons FINDINGS/IMPRESSION: No acute fracture. No malalignment. No significant focal degenerative changes.
--- NOTE | 2023-12-27 21:41 | EDPHYS ---
Physician Documentation [facility] Name: Denzel Denise Age: 43 yrs Sex: Male : 1980 Arrival Date: 12/27/2023 Time: 19:29 Bed 11 Private MD: ED Physician Pedrito Story HPI: 12/26 20:03 This 43 yrs old Male presents to ER via Ambulatory with complaints of Hand ms3 Injury. 20:03 43-year-old male with past medical history of diabetes presents to the emergency ms3 department for left index finger pain that began after his screwdriver slipped and he stabbed his left index finger 6 hours prior to arrival. Patient states he took Advil prior to arrival. Patient denies any alleviating or inciting factors. Patient states his last tetanus shot was likely 2016.. Historical: - Allergies: 19:45 No Known Allergies; as6 - PMHx: 19:45 Diabetes - NIDDM; as6 - PSHx: 19:45 None; as6 - Immunization history:: Last tetanus immunization: 2016. - Social history:: Smoking status: Patient denies any tobacco usage or history of. ROS: 20:03 Constitutional: Negative for fever, and chills. ENT: Negative for injury, pain, and ms3 discharge, Neck: Negative for injury, pain, and swelling, Cardiovascular: Negative for chest pain, and palpitations. Respiratory: Negative for shortness of breath, cough, wheezing, and pleuritic chest pain, Abdomen/GI: Negative for abdominal pain, nausea, vomiting, diarrhea, and constipation, MS/Extremity: Negative for injury and deformity, 20:03 Skin: Positive for Puncture wound left index finger, Exam: 20:03 Constitutional: This is a well developed, well nourished patient who is awake, alert, ms3 and in no acute distress. Head/Face: Normocephalic, atraumatic. Neck: Trachea midline, no cervical lymphadenopathy. Supple, full range of motion without nuchal rigidity, or vertebral point tenderness. No Meningismus. Chest/axilla: Normal chest wall appearance and motion. Nontender with no deformity. Cardiovascular: Regular rate and rhythm with a normal S1 and S2. No gallops, murmurs, or rubs. Normal PMI, no JVD. No pulse deficits. Respiratory: Lungs have equal breath sounds bilaterally, clear to auscultation and percussion. No rales, rhonchi or wheezes noted. No increased work of breathing, no retractions or nasal flaring. Abdomen/GI: Soft, non-tender, with normal bowel sounds. No distension or tympany. No guarding or rebound. No evidence of tenderness throughout. MS/ Extremity: Pulses equal, no cyanosis. Neurovascular intact. Full, normal range of motion. 20:03 Skin: Puncture wound distal left index finger with swelling. Tender to palpation. Cap refill less than 2 seconds, sensation intact. Vital Signs: 19:46 BP 121 / 79; Pulse 74; Resp 18 S; Temp 98.1(O); Pulse Ox 100% on R/A; Weight 97.07 kg as6 (R); Height 5 ft. 6 in. (R); Pain 8/10; 22:01 BP 119 / 78; Pulse 79; Resp 18 S; Pulse Ox 99% on R/A; as6 19:46 Body Mass Index 34.54 (97.07 kg, 167.64 cm) as6 19:46 Pain Scale: Adult as6 MDM: 19:54 Patient medically screened. ms3 21:40 Differential diagnosis: open fracture, closed fracture, Puncture wound. Data reviewed: ms3 vital signs, nurses notes, radiologic studies, and as a result, I will discharge patient. I considered the following discharge prescriptions or medication management in the emergency department Medications were administered in the Emergency Department. See MAR. Independent interpretation of the following test(s) in the Emergency Department X-Ray: My interpretation is Hand x-ray images reviewed by me do not reveal fracture or radiopaque foreign body. Care significantly affected by the following chronic conditions: Diabetes. Counseling: I had a detailed discussion with the patient and/or guardian regarding the historical points, exam findings, and any diagnostic results supporting the discharge/admit diagnosis, radiology results, the need for outpatient follow up, to return to the emergency department if symptoms worsen or persist or if there are any questions or concerns that arise at home. Special discussion: I discussed with the patient/guardian in detail that at this point there is no indication for admission to the hospital. It is understood, however, that if the symptoms persist or worsen the patient needs to return immediately for re-evaluation. ED course: Discussed x-ray results with patient. Patient to follow-up with primary care physician 2 to 3 days. Patient given prescription for Keflex. All questions were answered. Return precautions discussed include worsening symptoms, or any other concerns. On reevaluation patient is alert and oriented x 4, no apparent distress, nontoxic-appearing, cap refill less than 2 seconds, sensation intact. 12/26 19:57 Order name: Hand Right 3 View XRAY ms3 12/26 20:44 Order name: RAD; Complete Time: 21:19 EDMS 12/26 19:57 Order name: Wound Care; Complete Time: 21:15 ms3 Administered Medications: 20:10 Drug: Boostrix Tdap IM 0.5 ml IM once; as a single dose Route: IM; Site: left deltoid; nj1 22:00 Follow up: Response: No adverse reaction as6 Disposition Summary: 12/27/23 21:40 Discharge Ordered Notes: Location: Home ms3 Condition: Stable ms3 Diagnosis - Puncture injury Left index finger ms3 Followup: ms3 - With: Alfonso Francis DO - When: 2 - 3 days - Reason: Recheck today's complaints Discharge Instructions: - Discharge Summary Sheet ms3 - Puncture Wound, [id number]-[id number] ms3 Forms: - Medication Reconciliation Form ms3 - Thank You Letter ms3 - Antibiotic Education ms3 - Prescription Opioid Use ms3 - Patient Portal Instructions ms3 - Leadership Thank You Letter ms3 Prescriptions: - Cephalexin 500 mg Oral capsule - take 1 capsule ORAL route every 6 hours for 7 days; 28 capsule; Refills: 0, ms3 Product Selection Permitted Signatures: Dispatcher [employer] EDUT Pedrito Story, DO ms3 Roger Medina, JAMILAH RN as6 Cinthya Wright RN RN nj1
--- NOTE | 2023-12-27 21:41 | ER ---
Nurse's Notes [facility] Name: Denzel Denise Age: 43 yrs Sex: Male : 1980 Arrival Date: 12/27/2023 Time: 19:29 Bed 11 Private MD: Diagnosis: Puncture injury Left index finger Presentation: 12/26 19:46 Chief complaint: Patient states: pt poked himself with a screwdriver today while as6 working. Coronavirus screen: At this time, the client does not indicate any symptoms associated with coronavirus-19. Ebola Screen: No symptoms or risks identified at this time. Initial Sepsis Screen: Does the patient meet any 2 criteria? No. Patient's initial sepsis screen is negative. Does the patient have a suspected source of infection? No. Patient's initial sepsis screen is negative. Risk Assessment: Do you want to hurt yourself or someone else? Patient reports no desire to harm self or others. Onset of symptoms was December 27, 2023. 19:46 Acuity: TAYLOR 4 as6 19:46 Method Of Arrival: Ambulatory as6 Triage Assessment: 19:49 General: Appears in no apparent distress. Behavior is calm, cooperative. Pain: as6 Complains of pain in palmar aspect of distal phalanx of left index finger. Injury Description: Puncture sustained to palmar aspect of distal phalanx of left index finger is superficial. Historical: - Allergies: 19:45 No Known Allergies; as6 - PMHx: 19:45 Diabetes - NIDDM; as6 - PSHx: 19:45 None; as6 - Immunization history:: Last tetanus immunization: 2016. - Social history:: Smoking status: Patient denies any tobacco usage or history of. Screenin:[address] [facility] ED Fall Risk Assessment (Adult) History of falling in the last 3 months, as6 including since admission No falls in past 3 months (0 pts) Confusion or Disorientation No (0 pts) Intoxicated or Sedated No (0 pts) Impaired Gait No (0 pts) Mobility Assist Device Used No (0 pt) Altered Elimination No (0 pt) Score/Fall Risk Level 0 - 2 = Low Risk Oriented to surroundings, Maintained a safe environment, Educated pt \T\ family on fall prevention, incl call for assistance when getting out of bed, Assessed \T\ reinforced patient's understanding of fall precautions, Hourly rounding (assess needs \T\ fall precautionary measures) done. Abuse screen: Denies threats or abuse. Denies injuries from another. Nutritional screening: No deficits noted. Tuberculosis screening: No symptoms or risk factors identified. Assessment: 20:11 General: Appears in no apparent distress. comfortable, Behavior is calm, cooperative, nj1 appropriate for age. Pain: Complains of pain in palmar aspect of distal phalanx of right index finger. Neuro: Level of Consciousness is awake, alert, obeys commands, Oriented to person, place, time, situation. Cardiovascular: Patient's skin is warm and dry. Respiratory: Airway is patent Respiratory effort is even, unlabored. Musculoskeletal: Swelling present in right index finger Reports pain in palmar aspect of distal phalanx of right index finger. 20:11 Reassessment: Pt does not want dressing done until XRAY has been done. nj1 Vital Signs: 19:46 BP 121 / 79; Pulse 74; Resp 18 S; Temp 98.1(O); Pulse Ox 100% on R/A; Weight 97.07 kg as6 (R); Height 5 ft. 6 in. (R); Pain 8/10; 22:01 BP 119 / 78; Pulse 79; Resp 18 S; Pulse Ox 99% on R/A; as6 19:46 Body Mass Index 34.54 (97.07 kg, 167.64 cm) as6 19:46 Pain Scale: Adult as6 ED Course: 19:30 Patient arrived in ED. ra3 19:31 Pedrito Story DO is Attending Physician. ms3 19:45 Arm band placed on. as6 19:47 Triage completed. as6 19:52 Bed in low position. Call light in reach. as6 19:57 Cinthya Wright, RN is Primary Nurse. nj1 21:15 Dressings: Kerlix X 1; right index finger 2x2, triple abx ointment. nj1 21:39 Alfonso Francis DO is Referral Physician. ms3 22:00 No provider procedures requiring assistance completed. Patient did not have IV access as6 during this emergency room visit. 22:01 Provided Education on: wound care . as6 Administered Medications: 20:10 Drug: Boostrix Tdap IM 0.5 ml IM once; as a single dose Route: IM; Site: left deltoid; nj1 22:00 Follow up: Response: No adverse reaction as6 Medication: 20:10 Vaccine Information Statement (VIS) provided today. Questions and/or concerns nj1 addressed. VIS edition date: May 25, 2021. Outcome: 21:40 Discharge ordered by . ms3 22:01 Discharged to home ambulatory, with significant other, as6 22:01 Condition: stable 22:01 Discharge instructions given to patient, Instructed on discharge instructions, follow up and referral plans. medication usage, wound care, Demonstrated understanding of instructions, follow-up care, medications, wound care, Prescriptions given X 1, 22:02 Patient left the ED. as6 Signatures: Pedrito Story DO DO ms3 Roger Medina RN RN as6 Cinthya Wright RN RN nj1 Cinthia Sharma ra3
[2023-12-27 22:38] VITALS: BP 119/78; TEMP 98.1; O2SAT 99
== END ==
LOC: ER 19:29
DX: S61.231A Puncture wound without foreign body of left index finger without damage to nail, initial encounter (principal)
CPT/HCPCS: 96372; 99284

== ENCOUNTER 2024-04-17 14:55 | Emergency (ER) | payer BC, MEDICARE ==
--- OUTSIDE RECORDS SUMMARY | 2024-04-17 14:58 | XMS REPORT | Continuity of Care Document ---
Author Name Unknown Address [address] [facility] [address] [place] [address] [facility] thconnect Address [address] [facility] 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 Type 2 diabetes mellitus with hyperglyce nick Problem [facility] Social History Social Habit Start Date Stop Date Quantity Comments Source History of Tobacco Use [facility] Sex Assigned At [facility] Smoking Status Start Date Stop Date Source Former Smoker 2023-11-05 00:00:00 2023-11-05 00:00:00 [facility] Medications Ordered Medication Name Filled Medication [...] t} QD Rosuvastat in Calcium 20 MG Vital Signs Vital Name Observation Time Observation Value Comments Gael nogueira height 2023-11-05 09:40:00 66 [in_i] [facility] weight 2023-11-05 09:40:00 214 [lb_av] Comm on [facility] bmi 2023-11-05 09:40:00 34.54 kg/m2 Comm [facility] blood pressure diastolic 2023-10-03 16:00:00 72 mm[Hg] [facility] height 2023-10-03 16:00:00 66 [in_i] Commo n [facility] weight 2023-10-03 16:00:00 224.8 [lb_av] Co mmon [facility] temperature 2023-10-03 16:00:00 97.0 [degF] Com mon [facility] bmi 2023-10-03 16:00:00 36.28 kg/m2 Comm [facility] oximetry 2023-10-03 16:00:00 98 % [facility] respiratory rate 2023-10-03 16:00:00 16 /min [facility] blood pressure systolic 2023-10-03 16:00:00 130 mm[Hg] [facility] oximetry 2023-07-04 16:00:00 97 % [facility]mo [facility] respiratory rate 2023-07-04 16:00:00 16 /min [facility] blood pressure systolic 2023-07-04 16:00:00 138 mm[Hg] Common [facility] blood pressure diastolic 2023-07-04 16:00:00 84 mm[Hg] Common [facility] height 2023-07-04 16:00:00 66 [in_i] Commo n [facility] weight 2023-07-04 16:00:00 241.6 [lb_av] Co mmon [facility] temperature 2023-07-04 16:00:00 97.2 [degF] Com mon [facility] bmi 2023-07-04 16:00:00 38.99 kg/m2 Comm on [facility] height 2023-04-02 16:40:00 66 [in_i] Commo n [facility] weight 2023-04-02 16:40:00 240 [lb_av] Comm on [facility] temperature 2023-04-02 16:40:00 97.2 [degF] Com [facility] bmi 2023-04-02 16:40:00 38.73 kg/m2 Comm on [facility] oximetry 2023-04-02 16:40:00 97 % Commo [facility] respiratory rate 2023-04-02 16:40:00 16 /min Common [facility] blood pressure systolic 2023-04-02 16:40:00 134 mm[Hg] Common [facility] blood pressure diastolic 2023-04-02 16:40:00 72 mm[Hg] [facility] height 2023-02-26 15:40:00 66 [in_i] Commo n [facility] weight 2023-02-26 15:40:00 241.4 [lb_av] Co mmon [facility] temperature 2023-02-26 15:40:00 98.1 [degF] Com [facility] bmi 2023-02-26 15:40:00 38.96 kg/m2 Comm on [facility] oximetry 2023-02-26 15:40:00 96 % Commo n [facility] respiratory rate 2023-02-26 15:40:00 16 /min [facility] blood pressure systolic 2023-02-26 15:40:00 138 mm[Hg] [facility] blood pressure diastolic 2023-02-26 15:40:00 72 mm[Hg] [facility] Encounters Start Date/Time End Date/Time Encounter Type Admission Type Attending [facility] Facility Care Department Encounter ID Source 2023-11-27 08:50:01 Outpatient Kasie Navarro STGARCIALC STLMLC [id number] [facility] 2023-07-02 09:33:01 Outpatient Kasie Navarro STLMLC STLMLC [id number] [facility] 2023-03-31 10:08:02 Outpatient Kasie Navarro STLMLC STLMLC [id number] [facility] 2023-02-26 15:27:02 Outpatient Kasie Navarro STLMLC STLMLC [id number] [facility] 2024-04-01 00:00:00 2024-04-01 00:00:00 (TEL) STLMLC STLMLC [id number] [facility] 2023-11-24 00:00:00 2023-11-24 00:00:00 (TEL) STLMLC STLMLC [id number] [facility] 2023-11-05 00:00:00 2023-11-05 00:00:00 OFFICE VISIT ESTAB PT LEVEL 4 STLMLC STLMLC [id number] [facility] 2023-10-03 00:00:00 2023-10-03 00:00:00 OFFICE VISIT ESTAB PT LEVEL 4 STLMLC STLMLC [id number] [facility] 2023-08-19 00:00:00 2023-08-19 00:00:00 (TEL) STLMLC STLMLC [id number] [facility] 2023-07-30 00:00:00 2023-07-30 00:00:00 (TEL) STLMLC STLMLC [id number] [facility] 2023-07-04 00:00:00 2023-07-04 00:00:00 OFFICE VISIT ESTAB PT LEVEL 4 STLMLC STLMLC [id number] [facility] 2023-04-02 00:00:00 2023-04-02 00:00:00 OFFICE VISIT ESTAB PT LEVEL 4 STLMLC STLMLC [id number] [facility] 2023-04-02 00:00:00 2023-04-02 00:00:00 (TEL) STLMLC STLMLC [id number] [facility] 2023-02-26 00:00:00 2023-02-26 00:00:00 (TEL) STLMLC STLMLC [id number] [facility] 2023-02-26 00:00:00 2023-02-26 00:00:00 OFFICE VISIT NEW PT LEVEL 3 STLMLC STLMLC [id number] [facility] Results Test Description Test Time Test Comments Results Result Co mments Source HEMOGLOBIN [id number] 00:00:00* Test Item Value Reference Range Interpretation Comme nts HEMOGLOBIN A1c (test code = 4548-4) 5.6 % See_Comment [Automated [employer]] The system which generated this result transmitted reference range: 4.2-5.6 %. The reference range was not used to interpret this result as normal/abnormal. LIPID PANEL WITH REFLEX DIRECT [id number] 00:00:00* Test Item Value Reference Range Interpretation Comme nts CALC LDL CHOL (test code = 74599-9) 110 MG/DL See_Comment H [Automated messa ge] The system which generated this result transmitted reference range: <100 MG/DL. The reference range was not used to interpret this result as normal/abnormal. CHOLESTEROL (test code = 2093-3) 170 MG/DL See_Comment [Automated [employer] ge] The system which generated this result transmitted reference range: <200 MG/DL. The reference range was not used to interpret this result as normal/abnormal. HDL CHOLESTEROL (test code = 2085-9) 40 MG/DL See_Comment [Automated [employer] ge] The system which generated this result transmitted reference range: >39 MG/DL. The reference range was not used to interpret this result as normal/abnormal. RISK RATIO LDL/HDL (test code = 57948-1) 2.75 RATIO See_Comment [Automated message] The system [...] this result as normal/abnormal. ALBUMIN/CREATININE RATIO, RANDOM [id number] 00:00:00* Test Item Value Reference Range Interpretation Comme nts ALBUMIN, URINE, RANDOM (test code = 38797-7) 1.5 MG/DL NOT ESTAB MG/DL CALC ALBUMIN/CREAT, RND (test code = 00363-1) 7 MG/G See_Comment [Automated [employer] ge] The system which generated this result transmitted reference range: <30 MG/G. The reference range was not used to interpret this result as normal/abnormal. CREATININE, URINE, CONC. (test code = 2161-8) 220.2 MG/DL NOT ESTAB MG/DL COMPREHENSIVE METABOLIC [id number] 00:00:00* Test Item Value Reference Range Interpretation Comme nts ALBUMIN (test code = 1751-7) 4.7 G/DL See_Comment [Automated [employer] ge] The system which generated this result [...] code = 3094-0) 15 MG/DL See_Comment [Automated [employer] ge] The system which generated this result transmitted reference range: 6-20 MG/DL. The reference range was not used to interpret this result as normal/abnormal. CALCIUM (test code = 56857-1) 9.3 MG/DL See_Comment [Automated messa ge] The [...] as normal/abnormal. CALC GLOBULIN (test code = 72119-1) 2.3 G/DL See_Comment [Automated messa ge] The [...] normal/abnormal. eGFR (2020 CKD-EPI) (test code = 57016-4) 110 ML/MIN/1.73 See_Comment [Automated message] The system [...] interpret this result as normal/abnormal. CBC W/AUTO [id number] 00:00:00* Test Item Value Reference Range Interpretation Comme nts NUCLEATED RBCS (test code = 12150-1) 0.0 /100 WBC'S See_Comment [Automated messa ge] The system which generated this result transmitted reference range: 0.0 /100 WBC'S. The reference range was not used to interpret this result as normal/abnormal. ABSOLUTE EOSINOPHILS (test code = 35468-7) 0.19 K/UL See_Comment [Automated messa ge] The system which generated this result transmitted reference range: 0.00-0.50 K/UL. The reference range was not used to interpret this result as normal/abnormal. ABSOLUTE LYMPHOCYTES (test code = 45999-9) 2.75 K/UL See_Comment [Automated messa ge] The system which generated this result transmitted reference range: 1.00-4.00 K/UL. The reference range was not used to interpret this result as normal/abnormal. ABSOLUTE MONOCYTES (test code = 12504-4) 0.56 K/UL See_Comment [Automated messa ge] The system which generated this result transmitted reference range: 0.20-1.00 K/UL. The reference range was not used to interpret this result as normal/abnormal. ABSOLUTE NEUTROPHILS (test code = 37735-8) 2.63 K/UL See_Comment [Automated messa ge] The system which generated this result transmitted reference range: 1.50-7.50 K/UL. The reference range was not used to interpret this result as normal/abnormal. BASOPHILS (test code = 42394-9) 0.5 % EOSINOPHILS (test code = 00747-6) 3.1 % HEMATOCRIT (test code = 29858-1) 45.3 % See_Comment [Automated messa ge] The [...] result as normal/abnormal. LYMPHOCYTES (test code = 93063-2) 44.4 % MCH (test code = 41919-3) 29.5 PG See_Comment [Automated messa ge] The system which generated this result transmitted reference range: 25.0-33.0 PG. The reference range was not used to interpret this result as normal/abnormal. MCHC (test code = 87774-0) 33.3 G/DL See_Comment [Automated messa ge] The system which generated this result transmitted reference range: 31.0-36.0 G/DL. The reference range was not used to interpret this result as normal/abnormal. MCV (test code = 22438-1) 88.5 fL See_Comment [Automated messa ge] The system which generated this result transmitted reference range: 80.0-99.0 fL. The reference range was not used to interpret this result as normal/abnormal. MONOCYTES (test code = 23520-1) 9.0 % NEUTROPHILS (test code = 18094-7) 42.4 % PLATELET COUNT (test code = 85762-9) 175 K/UL See_Comment [Automated messa ge] The system which generated this result transmitted reference range: 130-400 K/UL. The reference range was not used to interpret this result as normal/abnormal. RBC (test code = 60641-4) 5.12 M/UL See_Comment [Automated messa ge] The system which generated this result transmitted reference range: 4.50-6.10 M/UL. The reference range was not used to interpret this result as normal/abnormal. RDW (test code = 66206-4) 12.9 % See_Comment [Automated messa ge] The system which generated this result transmitted reference range: 11.5-15.0 %. The reference range was not used to interpret this result as normal/abnormal. WBC (test code = 88743-1) 6.2 K/UL See_Comment [Automated messa ge] The system which generated this result transmitted reference range: 3.5-11.0 K/UL. The reference range was not used to interpret this result as normal/abnormal. [id number] 00:00:00* Test Item Value Reference Range Interpretation Comme [facility] GGT (test code = 2324-2) 101 U/L See_Comment H [Automated messa ge] The system which generated this result transmitted reference range: <60 U/L. The reference range was not used to interpret this result as normal/abnormal. HEMOGLOBIN [id number] 00:00:00* Test Item Value Reference Range Interpretation Comme [facility] HEMOGLOBIN A1c (test code = 4548-4) 7.6 % See_Comment H [Automated messa ge] The system which generated this result transmitted reference range: 4.2-5.6 %. The reference range was not used to interpret this result as normal/abnormal. HIV 1/2 4TH GEN, RFLX [id number] 00:00:00* Test Item Value Reference Range Interpretation Comme [facility] HIV 1/2 4TH GEN, RFLX CONF ( test code = 43527-0) NON-REACTIVE NON-REACTIVE LIPID PANEL WITH REFLEX DIRECT [id number] 00:00:00* Test Item Value Reference Range Interpretation Comme nts CALC LDL CHOL (test code = 81069-0) 60 MG/DL See_Comment [Automated messa ge] The [...] normal/abnormal. RISK RATIO LDL/HDL (test code = 74459-5) 2.07 RATIO See_Comment [Automated message] The system [...] this result as normal/abnormal. ALBUMIN/CREATININE RATIO, RANDOM [id number] 00:00:00* Test Item Value Reference Range Interpretation Comme nts ALBUMIN, URINE, RANDOM (test code = 22287-6) 4.4 MG/DL NOT ESTAB MG/DL CALC ALBUMIN/CREAT, RND (test code = 47005-3) 20 MG/G See_Comment [Automated messa ge] The system which generated this result transmitted reference range: <30 MG/G. The reference range was not used to interpret this result as normal/abnormal. CREATININE, URINE, CONC. (test code = 2161-8) 216.7 MG/DL NOT ESTAB MG/DL COMPREHENSIVE METABOLIC [id number] 00:00:00* Test Item Value Reference Range Interpretation [...] result as normal/abnormal. CALCIUM (test code = 53278-2) 8.8 MG/DL See_Comment [Automated messa ge] The [...] as normal/abnormal. CALC GLOBULIN (test code = 73258-2) 2.5 G/DL See_Comment [Automated messa ge] The [...] normal/abnormal. eGFR (2020 CKD-EPI) (test code = 14859-6) 120 ML/MIN/1.73 See_Comment [Automated message] The system [...] interpret this result as normal/abnormal. ACUTE HEPATITIS [id number] 00:00:00* Test Item Value Reference Range Interpretation Comme nts HEPATITIS A IgM (test code = 58941-8) NON-REACTIVE NON-REACTIVE HEPATITIS B CORE IgM (test c ode = 92842-4) NON-REACTIVE NON-REACTIVE HEPATITIS B SURF AG (test co de = 5195-3) NON-REACTIVE NON-REACTIVE HEPATITIS C ANTIBODY (test c ode = 21304-0) NON-REACTIVE NON-REACTIVE CBC W/AUTO [id number] 00:00:00* Test Item Value Reference Range Interpretation Comme nts NUCLEATED RBCS (test code = 92805-4) 0.0 /100 WBC'S See_Comment [Automated messa ge] The system which generated this result transmitted reference range: 0.0 /100 WBC'S. The reference range was not used to interpret this result as normal/abnormal. ABSOLUTE EOSINOPHILS (test code = 48045-9) 0.29 K/UL See_Comment [Automated messa ge] The system which generated this result transmitted reference range: 0.00-0.50 K/UL. The reference range was not used to interpret this result as normal/abnormal. ABSOLUTE LYMPHOCYTES (test code = 19525-0) 2.73 K/UL See_Comment [Automated messa ge] The system which generated this result transmitted reference range: 1.00-4.00 K/UL. The reference range was not used to interpret this result as normal/abnormal. ABSOLUTE MONOCYTES (test code = 64555-2) 0.54 K/UL See_Comment [Automated messa ge] The system which generated this result transmitted reference range: 0.20-1.00 K/UL. The reference range was not used to interpret this result as normal/abnormal. ABSOLUTE NEUTROPHILS (test code = 36110-0) 3.44 K/UL See_Comment [Automated messa ge] The system which generated this result transmitted reference range: 1.50-7.50 K/UL. The reference range was not used to interpret this result as normal/abnormal. BASOPHILS (test code = 80251-5) 0.4 % EOSINOPHILS (test code = 15880-4) 4.1 % HEMATOCRIT (test code = 29196-8) 46.7 % See_Comment [Automated messa ge] The [...] result as normal/abnormal. LYMPHOCYTES (test code = 40388-6) 38.5 % MCH (test code = 39757-1) 30.3 PG See_Comment [Automated messa ge] The system which generated this result transmitted reference range: 25.0-33.0 PG. The reference range was not used to interpret this result as normal/abnormal. MCHC (test code = 47259-9) 35.1 G/DL See_Comment [Automated messa ge] The system which generated this result transmitted reference range: 31.0-36.0 G/DL. The reference range was not used to interpret this result as normal/abnormal. MCV (test code = 84451-3) 86.2 fL See_Comment [Automated messa ge] The system which generated this result transmitted reference range: 80.0-99.0 fL. The reference range was not used to interpret this result as normal/abnormal. MONOCYTES (test code = 30441-8) 7.6 % NEUTROPHILS (test code = 15408-5) 48.6 % PLATELET COUNT (test code = 83873-9) 198 K/UL See_Comment [Automated messa ge] The system which generated this result transmitted reference range: 130-400 K/UL. The reference range was not used to interpret this result as normal/abnormal. RBC (test code = 52873-1) 5.42 M/UL See_Comment [Automated messa ge] The system which generated this result transmitted reference range: 4.50-6.10 M/UL. The reference range was not used to interpret this result as normal/abnormal. RDW (test code = 68635-9) 13.0 % See_Comment [Automated messa ge] The system which generated this result transmitted reference range: 11.5-15.0 %. The reference range was not used to interpret this result as normal/abnormal. WBC (test code = 47881-3) 7.1 K/UL See_Comment [Automated messa ge] The system which generated this result transmitted reference range: 3.5-11.0 K/UL. The reference range was not used to interpret this result as normal/abnormal. HEMOGLOBIN [id number] 00:00:00* Test Item Value Reference Range Interpretation Comme [facility] HEMOGLOBIN A1c (test code = 4548-4) 7.4 % See_Comment H [Automated messa ge] The system which generated this result transmitted reference range: 4.2-5.6 %. The reference range was not used to interpret this result as normal/abnormal. LIPID PANEL WITH REFLEX DIRECT [id number] 00:00:00* Test Item Value Reference Range Interpretation Comme [facility] CALC LDL CHOL (test code = 94545-3) 125 MG/DL See_Comment H [Automated messa ge] [...] normal/abnormal. RISK RATIO LDL/HDL (test code = 73352-8) 3.38 RATIO See_Comment [Automated message] The system [...] result as normal/abnormal. TSH + FREE T4 [id number] 00:00:00* Test Item Value Reference Range Interpretation Comme [facility] FREE T4 (THYROXINE) (test code = 3024-7) 1.14 NG/DL See_Comment [Automated message] The system which generated this result transmitted reference range: 0.80-1.90 NG/DL. The reference range was not used to interpret this result as normal/abnormal. TSH, THIRD GENERATION (test code = 61975-9) 2.030 UIU/ML See_Comment [Automated messa ge] The system which generated this result transmitted reference range: 0.400-4.100 UIU/ML. The reference range was not used to interpret this result as normal/abnormal. VITAMIN B 12 AND FOLIC [id number] 00:00:00* Test Item Value Reference Range Interpretation Comme nts FOLIC ACID (test code = 2284-8) 17.0 UG/L SEE BELOW UG/L VITAMIN B-12 (test code = 2132-9) 744 PG/ML See_Comment [Automated messa ge] The system which generated this result transmitted reference range: 200-950 PG/ML. The reference range was not used to interpret this result as normal/abnormal. TESTOSTERONE, BIOAVAILABLE, FREE AND [id number] 00:00:00* Test Item Value Reference Range Interpretation Comme [facility] SEX HORM BIND GLOBULIN (test code = 98543-7) 20.8 NMOL/L See_Comment [Automated messa ge] The system which generated this result transmitted reference range: 16.5-55.9 NMOL/L. The reference range was not used to interpret this result as normal/abnormal. TESTOSTERONE,% FREE CALC (test code = 64702-5) 2.6 % See_Comment [Automated [employer] ge] The system which generated this result [...] code = 2991-8) 95.2 PG/ML See_Comment [Automated [employer] ge] The system which generated this result transmitted reference range: 47.0-244.0 PG/ML. The reference range was not used to interpret this result as normal/abnormal. TESTOSTERONE, TOTAL (test code = 2986-8) 372 NG/DL See_Comment [Automated message] The system which generated this result transmitted reference range: 300-890 NG/DL. The reference range was not used to interpret this result as normal/abnormal. COMPREHENSIVE METABOLIC [id number] 00:00:00* Test Item Value Reference Range Interpretation [...] result as normal/abnormal. CALCIUM (test code = 03661-1) 9.3 MG/DL See_Comment [Automated messa ge] The [...] as normal/abnormal. CALC GLOBULIN (test code = 21781-9) 2.6 G/DL See_Comment [Automated messa ge] The system which generated this result transmitted reference range: 1.9-3.7 G/DL. The reference range was not used to interpret this result as normal/abnormal. CARBON DIOXIDE (test code = 1962-8) 23 MEQ/L See_Comment [Automated messa ge] The system which generated this result transmitted reference range: 19-31 MEQ/L. The reference range was not used to interpret this result as normal/abnormal. CHLORIDE (test code = 5-0) 101 MEQ/L See_Comment [Automated messa ge] The [...] normal/abnormal. eGFR (2020 CKD-EPI) (test code = 68646-2) 116 ML/MIN/1.73 See_Comment [Automated message] The system [...]
[2024-04-17] MEDS ORDERED: MAGNES/ALUMIN/SIMET 30ML UCUP ONE (15:22)
[2024-04-17] MEDS ORDERED: FAMOTIDINE 20 MG/2 ML VIAL IV ONE (15:23)
[2024-04-17] MEDS ORDERED: LIDOCAINE VISCOUS 2% 10ML ORAL SOLN ONE (15:23)
[2024-04-17 15:28] LABS: Absolute Eosinophils 0.4 K/uL (0-0.5); Absolute Lymphocytes (CBC) 3.1 K/uL (0.7-4.9); Absolute Monocytes 0.5 K/uL (0.1-1.3); Absolute Neutrophil 5.9 K/uL (1.8-8.0); Basophils % 0.4 % (0-1.3); Eosinophils % 3.7 % (0-4.4); Hematocrit 46.6 % (39.6-49.0); Hemoglobin 15.9 g/dL (13.6-17.9); Lymphocytes % 31.3 % (15.3-44.8); MCH 29.5 pg (27.0-35.0); MCHC 34.1 g/dL (32.0-36.0); MCV 86.6 fL (80-100); MPV 7.5 fL (7.6-11.3); Monocytes % 5.1 % (3.3-12.3); Neutrophils % 59.5 % (41.7-73.7); Nucleated Red Blood Cells % 0.1 % (0-0); Platelets 234 thou/uL (152-406); RBC Red Blood Cell Count 5.39 M/uL (4.33-5.43); Red Cell Distribution Width 14.5 % (12.1-15.2)
[2024-04-17 15:47] LABS: ALT/SGPT 33 U/L (16-61); AST/SGOT 13 U/L (15-37); Albumin 4.3 g/dL (3.4-5.0); Albumin/Globulin Ratio 1.1 (1.1-1.8); Alkaline Phosphatase 67 U/L (45-117); Anion Gap 11.9 mEq/L (5.0-15.0); BUN Blood Urea Nitrogen 19 mg/dL (7-18); Bicarbonate 28 mEq/L (21-32); Bilirubin Direct 0.2 mg/dL (0-0.2); Bilirubin Indirect, Calculated 0.3 mg/dL (0.2-0.8); Bilirubin Total 0.5 mg/dL (0.2-1.0); Globulin 3.8 g/dL (2.3-3.5); Glomerular Filtration Rate 109 ml/min (=/>90); Glucose Level 160 mg/dL (74-106); Lipase 65 U/L (13-75); Potassium 3.9 mEq/L (3.5-5.1); Protein, Total 8.1 g/dL (6.4-8.2); Sodium Level 140 mEq/L (136-145)
[2024-04-17 15:48] LABS: Troponin High Sensitivity < 3.0 pg/mL (<58.9)
--- NOTE | 2024-04-17 15:59 | RAD REPORT ---
EXAM DESCRIPTION: Will Single View04/17/2024 3:39 pm CLINICAL HISTORY: CHEST PAIN COMPARISON: Chest Single View dated 07/05/2018 TECHNIQUE: Portable AP view of the chest. FINDINGS: The lungs are clear. No pneumothorax or effusion. The cardiomediastinal contours are unre markable. IMPRESSION: No acute cardiopulmonary process.
--- NOTE | 2024-04-17 16:19 | ER ---
Nurse's Notes [facility] Name: Denzel Denise Age: 43 yrs Sex: Male : 1980 Arrival Date: 04/17/2024 Time: 14:55 Bed 3 Private MD: Diagnosis: Chest pain, unspecified Presentation: 04/17 15:14 Chief complaint:. ld1 15:14 Chief complaint: Patient states: chest pain to the center of chest that he describes as cm10 pressure. 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 Coronavirus screen: Client denies travel out of the [place] in the last 14 days. At this time, the client does not indicate any symptoms associated with coronavirus-19. Ebola Screen: Patient denies travel to an Ebola-affected area in the 21 days before illness onset. No symptoms or risks identified at this time. Initial Sepsis Screen: Does the patient meet any 2 criteria? No. Patient's initial sepsis screen is negative. Does the patient have a suspected source of infection? No. Patient's initial sepsis screen is negative. Risk Assessment: Do you want to hurt yourself or someone else? Patient reports no desire to harm self or others. Onset of symptoms was April 17, 2024. 15:14 Method Of Arrival: Ambulatory cm10 15:14 Acuity: TAYLOR 2 cm10 Triage Assessment: 15:17 General: Appears in no apparent distress. comfortable, Behavior is calm, cooperative. cm10 Pain: Complains of pain in chest Pain does not radiate. Pain currently is 6 out of 10 on a pain scale. Quality of pain is described as pressure, Pain began 1 hour ago. Neuro: No deficits noted. Level of Consciousness is awake, alert, obeys commands, Oriented to person, place, time, situation, Appropriate for age. Respiratory: No deficits noted. Airway is patent Respiratory effort is even, unlabored, Respiratory pattern is regular, symmetrical. Historical: - Allergies: 15:16 No Known Allergies; cm10 - PMHx: 15:16 Diabetes - NIDDM; Hypercholesterolemia; cm10 - PSHx: 15:16 None; cm10 - Immunization history:: Adult Immunizations up to date. - Infectious Disease History:: Denies. - Social history:: Smoking status: Patient reports the use of cigarette tobacco products, denies chronic smoking, but will smoke occasionally. - Family history:: not pertinent. - Hospitalizations: : No recent hospitalization is reported. Screenin:15 [facility] ED Fall Risk Assessment (Adult) History of falling in the last 3 months, ld1 including since admission No falls in past 3 months (0 pts) Confusion or Disorientation No (0 pts) Intoxicated or Sedated No (0 pts) Impaired Gait No (0 pts) Mobility Assist Device Used No (0 pt) Altered Elimination No (0 pt) Score/Fall Risk Level 0 - 2 = Low Risk Oriented to surroundings, Maintained a safe environment, Educated pt \T\ family on fall prevention, incl call for assistance when getting out of bed, Assessed \T\ reinforced patient's understanding of fall precautions, Provided non-skid footwear, Hourly rounding (assess needs \T\ fall precautionary measures) done, Used ambulatory aids as needed (educated on \T\ assisted with), Used gait belt as appropriate. Abuse screen: Denies threats or abuse. Denies injuries from another. Nutritional screening: No deficits noted. Tuberculosis screening: No symptoms or risk factors identified. Assessment: 15:15 General: Appears in no apparent distress. uncomfortable, Behavior is calm, cooperative, ld1 appropriate for age. Pain: Complains of pain in chest Pain does not radiate. Pain currently is 9 out of 10 on a pain scale. Quality of pain is described as throbbing, Pain began suddenly, Is continuous. Neuro: Level of Consciousness is awake, alert, obeys commands, Oriented to person, place, time, situation, Appropriate for age. Cardiovascular: Capillary refill < 3 seconds Patient's skin is warm and dry. Rhythm is sinus rhythm. Respiratory: Airway is patent Respiratory effort is even, unlabored. GI: Abdomen is flat, non-distended. : No signs and/or symptoms were reported regarding the genitourinary system. EENT: No signs and/or symptoms were reported regarding the EENT system. Derm: No signs and/or symptoms reported regarding the dermatologic system. Musculoskeletal: No signs and/or symptoms reported regarding the musculoskeletal system. 16:42 Reassessment: No changes from previously documented assessment. Patient and/or family ld1 updated on plan of care and expected duration. Pain level reassessed. Patient is alert, oriented x 3, equal unlabored respirations, skin warm/dry/pink. Patient states symptoms have improved. Vital Signs: 15:14 BP 126 / 66; Pulse 72; Resp 18; Temp 97.9(O); Pulse Ox 98% on R/A; Weight 95.25 kg; cm10 Height 5 ft. 6 in. ; Pain 6/10; 15:15 BP 123 / 66; Pulse 76; Resp 19; Pulse Ox 99% on R/A; ld1 16:42 BP 129 / 71; Pulse 72; Resp 18; Pulse Ox 99% on R/A; Pain 0/10; ld1 15:14 Body Mass Index 33.89 (95.25 kg, 167.64 cm) cm10 15:14 Pain Scale: Adult cm10 16:42 Pain Scale: Adult ld1 ED Course: 14:56 Patient arrived in ED. ts1 15:00 Shine Caal MD is Attending Physician. rn 15:12 EKG done, by ED staff, reviewed by Shine Caal MD. hb 15:14 Nancy Story, RN is Primary Nurse. ld1 15:14 Client placed on continuous cardiac and pulse oximetry monitoring. NIBP monitoring hb applied. awake overnight monitor on. Pulse ox on. NIBP on. 15:15 Patient has correct armband on for positive identification. Placed in gown. Bed in low ld1 position. Call light in reach. Side rails up X2. awake overnight monitor on. Door closed. Noise minimized. Warm blanket given. 15:15 No provider procedures requiring assistance completed. O2 via RA. ld1 15:15 Inserted saline lock:. ld1 15:16 Triage completed. cm10 15:17 Inserted saline lock: 20 gauge in right forearm, using aseptic technique. Blood ld1 collected. 15:18 Arm band placed on Patient placed in an exam room, on a stretcher, on color television console monitor, cm10 on pulse oximetry. EKG completed in triage. Results shown to MD. 15:41 XRAY Chest (1 view) In Process Unspecified. EDMS 16:43 IV discontinued, intact, bleeding controlled, No redness/swelling at site. ld1 Administered Medications: 15:27 Drug: Famotidine IVP 20 mg IVP once; dilute with 10 mL 0.9% NaCl; give over 2 minutes ld1 Route: IVP; Site: right forearm; 15:28 Drug: GI Cocktail without - (Maalox PO 30 ml, Lidocaine Mucous Membrane 2 % 15 ld1 ml) PO once Route: PO; Medication: 15:15 VIS not applicable for this client. ld1 Outcome: 16:18 Discharge ordered by . rn 16:42 Discharged to home ambulatory, with family, ld1 16:42 Condition: stable 16:42 Discharge instructions given to patient, family, Instructed on discharge instructions, follow up and referral plans. Demonstrated understanding of instructions, follow-up care, 16:43 Patient left the ED. ld1 Signatures: Dispatcher [employer] EDMS Shine Caal MD MD rn Baxter, Heather, RN RN hb Sims, Lauren, RN RN ld1 Alejandra Edwards PAS PAS ts1 Breonna Rene RN RN cm10
--- NOTE | 2024-04-17 16:19 | EDPHYS ---
Physician Documentation [facility] [place], [place] Name: Denzel Denise Age: 43 yrs Sex: Male : 1980 Arrival Date: 04/17/2024 Time: 14:55 Bed 3 Private MD: ED Physician Shine Caal HPI: 04/17 15:27 This 43 yrs old Male presents to ER via Ambulatory with complaints of Chest rn Pain. 15:27 The patient or guardian reports chest pain that is located primarily in the substernal rn area. Onset: just prior to arrival. The pain does not radiate. Associated signs and symptoms: Pertinent negatives: abdominal pain, cough, diaphoresis, dizziness, near syncope, palpitations, shortness of breath, syncope, vomiting. The chest pain is described as burning. Duration: The patient or guardian reports a single episode, that is now resolved. Modifying factors: The symptoms are alleviated by nothing. the symptoms are aggravated by nothing. Severity of pain: At its worst the pain was moderate in the emergency department the pain has resolved. The patient has not experienced similar symptoms in the past. Patient reports eating [employer] for the first time in years, shortly after eating felt pain in the lower chest, felt burning sensation, lasted for few minutes and now resolved. Completely back to normal. No chronic medical problems. No family history of early cardiac problems. No trauma. No shortness of breath.. Historical: - Allergies: 15:16 No Known Allergies; cm10 - PMHx: 15:16 Diabetes - NIDDM; Hypercholesterolemia; cm10 - PSHx: 15:16 None; cm10 - Immunization history:: Adult Immunizations up to date. - Infectious Disease History:: Denies. - Social history:: Smoking status: Patient reports the use of cigarette tobacco products, denies chronic smoking, but will smoke occasionally. - Family history:: not pertinent. - Hospitalizations: : No recent hospitalization is reported. ROS: 15:27 Constitutional: Negative for fever, chills, and weight loss, Cardiovascular: Positive rn for chest pain Respiratory: Negative for shortness of breath, cough, wheezing, and pleuritic chest pain, Abdomen/GI: Negative for abdominal pain, nausea, vomiting, diarrhea, and constipation, MS/Extremity: Negative for injury and deformity, Skin: Negative for injury, rash, and discoloration, Neuro: Negative for headache, weakness, numbness, tingling, and seizure, Exam: 15:27 Constitutional: This is a well developed, well nourished patient who is awake, alert, rn and in no acute distress. Cardiovascular: Regular rate and rhythm. No pulse deficits. Respiratory: No increased work of breathing, no retractions or nasal flaring. Abdomen/GI: Soft, non-tender Neuro: Awake and alert, GCS 15 17:58 ECG was reviewed by the Attending Physician. rn Vital Signs: 15:14 BP 126 / 66; Pulse 72; Resp 18; Temp 97.9(O); Pulse Ox 98% on R/A; Weight 95.25 kg; cm10 Height 5 ft. 6 in. ; Pain 6/10; 15:15 BP 123 / 66; Pulse 76; Resp 19; Pulse Ox 99% on R/A; ld1 16:42 BP 129 / 71; Pulse 72; Resp 18; Pulse Ox 99% on R/A; Pain 0/10; ld1 15:14 Body Mass Index 33.89 (95.25 kg, 167.64 cm) cm10 15:14 Pain Scale: Adult cm10 16:42 Pain Scale: Adult ld1 MDM: 15:00 Patient medically screened. rn 16:16 Differential diagnosis: acute myocardial infarction, acute pericarditis, anxiety, rn cholecystitis, Cholelithiasis costochondritis, esophagitis, gastritis, gastroesophageal reflux disease (GERD), pancreatitis, pneumothorax. HEART Score: History: Slightly Suspicious (0), ECG: Normal (0), Age: < or = 45 years (0), Risk Factors: 1 or 2 risk factors (1), Troponin: < or = 1 x Normal Limit (0), Total Score = 1. Data reviewed: vital signs, nurses notes, lab test result(s), EKG, radiologic studies, and as a result, I will discharge patient. Independent interpretation of the following test(s) in the Emergency Department EKG: See my EKG interpretation above X-Ray: My interpretation is CXR images negative for pneumothorax per my interpretation. Counseling: I had a detailed discussion with the patient and/or guardian regarding the historical points, exam findings, and any diagnostic results supporting the discharge/admit diagnosis, lab results, radiology results, the need for outpatient follow up, to return to the emergency department if symptoms worsen or persist or if there are any questions or concerns that arise at home. Response to treatment: the patient's symptoms have resolved after treatment, and as a result, I will discharge patient. Special discussion: I discussed with the patient/guardian in detail that at this point there is no indication for admission to the hospital. It is understood, however, that if the symptoms persist or worsen the patient needs to return immediately for re-evaluation. 04/17 15:16 Order name: Basic Metabolic Panel; Complete Time: 16:12 04/17 15:16 Order name: CBC with Diff; Complete Time: 16:04/17 15:16 Order name: LFT's; Complete Time: 16:04/17 15:16 Order name: Troponin HS; Complete Time: 16:04/17 15:16 Order name: Lipase; Complete Time: 16:04/17 15:16 Order name: XRAY Chest (1 view); Complete Time: 16:04/17 15:16 Order name: EKG; Complete Time: 15:04/17 15:16 Order name: Cardiac monitoring; Complete Time: 15:04/17 15:16 Order name: EKG - Nurse/Tech; Complete Time: 15:04/17 15:16 Order name: IV Saline Lock; Complete Time: 15:04/17 15:16 Order name: Labs collected and sent; Complete Time: 15:04/17 15:16 Order name: O2 Per Protocol; Complete Time: 15:04/17 15:16 Order name: O2 Sat Monitoring; Complete Time: 15: rn EC:58 Rate is 74 beats/min. Rhythm is regular. QRS [place] is Normal. OR interval is normal. QRS rn interval is normal. QT interval is normal. No Q waves. T waves are Normal. No ST changes noted. Clinical impression: Normal ECG. Interpreted by me. Reviewed by me. Administered Medications: 15:27 Drug: Famotidine IVP 20 mg IVP once; dilute with 10 mL 0.9% NaCl; give over 2 minutes ld1 Route: IVP; Site: right forearm; 15:28 Drug: GI Cocktail without - (Maalox PO 30 ml, Lidocaine Mucous Membrane 2 % 15 ld1 ml) PO once Route: PO; Disposition Summary: 04/17/24 16:18 Discharge Ordered Notes: Location: Home rn Problem: new rn Symptoms: have improved rn Condition: Stable rn Diagnosis - Chest pain, unspecified rn Followup: rn - With: Private Physician - When: As needed - Reason: Recheck today's complaints, Re-evaluation by your physician Discharge Instructions: - Discharge Summary Sheet rn - Nonspecific Chest Pain, Adult rn Forms: - Medication Reconciliation Form rn - Antibiotic rn pediatric - Prescription Opioid Use rn - Patient Portal Instructions rn - Leadership Thank You Letter rn Signatures: Dispatcher [employer] EDMS Shine Caal MD MD rn Sims, Lauren, RN RN ld1 Breonna Rene RN RN cm10 Corrections: (The following items were deleted from the chart) 15:17 15:17 BASIC METABOLIC PANEL+C.LAB.BRZ ordered. EDMS EDMS 15:17 15:17 CBC+H.LAB.BRZ ordered. EDMS EDMS 15:17 15:17 HEPATIC FUNCTION+C.LAB.BRZ ordered. EDMS EDMS 15:17 15:17 Troponin High Sensitivity+C.LAB.BRZ ordered. EDMS EDMS 15:17 15:17 LIPASE+C.LAB.BRZ ordered. EDMS EDMS
[2024-04-17 16:57] VITALS: BP 129/71; TEMP 97.9; O2SAT 99
--- NOTE | 2024-04-19 14:18 | EKG ---
Test Date: 2024-04-17 Test Time: 15:12:07 Configuration Management Manager: HB MEASUREMENT RESULTS: Intervals: Rate: 74 LA: 158 QRSD: 104 QT: 370 QTc: 410 [place]: P: 15 LA: 158 QRS: 102 T: 31 INTERPRETIVE STATEMENTS: Normal sinus rhythm Normal ECG Compared to ECG 07/23/2019 22:48:58 Right-axis deviation no longer present Myocardial infarct finding no longer present Electronically Signed On 04-19-24 14:14:26 CDT by Skyler Abrams
== END 2024-04-17 16:43 | disposition home or self-care (01) ==
LOC: ER 14:55
DX: R07.9 Chest pain, unspecified (principal); F17.210 Nicotine dependence, cigarettes, uncomplicated
CPT/HCPCS: 36415; 71045; 80048; 80076; 83690; 84484; 85025; 93005; 96374; 99285